=== PATIENT | female | born 1990 | race Caucasian/White ===

== ENCOUNTER 2017-09-19 16:57 | Emergency (ER) | payer MEDICARE, MEDICAID ==
[2017-09-19 17:09] VITALS: BP 119/84
--- NOTE | 2017-09-19 18:55 | UC ---
Jonn Rick Nilda, scribed for Pablo Kerr MD on 09/19/17 at 1737 . Abdominal Pain Female HPI - HPI Summary HPI Summary: This patient is a 27 year old F presenting to [facility] accompanied by family with a chief complaint of constant severe abd pain (RUQ wrapping to LUQ, occasionally radiating to chest) since 09/15/17. The patient rates the pain 8/10 in severity at its worse. Currently pain is rated as 6/10. Symptoms aggravated by PO intake and movement, and alleviated by nothing. Patient reports nausea, but denies vomiting, diarrhea, fever, dysuria, hematuria, and abnormal BM. PMHx GERD and ovarian cysts (ruptured). No PSHx. Pt denies having children. Pt states she is currently seeing GI doctor for issues with GERD. Pt notes she has not experienced previous similar episode. - History of Current Complaint Chief Complaint: UCAbdominalPain Stated Complaint: ABDOMINAL PAIN Hx Obtained From: Patient Hx Last Menstrual Period: 09/15/17 Onset/Duration: Sudden Onset, Lasting Days, Still Present Timing: Constant Severity Initially: Severe Severity Currently: Moderate Pain Intensity: 8 Pain Scale Used: 0-10 Numeric Location: Discrete At: RUQ, Discrete At: LUQ Radiates: Yes Radiates to: Chest Aggravating Factor(s): Food, Movement Alleviating Factor(s): Nothing Associated Signs and Symptoms: Positive: Other: - nausea, but denies vomiting, diarrhea, fever, dysuria, hematuria, and abnormal BM Allergies/Adverse Reactions: Allergies Allergy/AdvReac Type Severity Reaction Status Date / Time nickel Allergy Rash Verified 09/19/17 18:06 shellfish derived Allergy Anaphylatic Verified 09/19/17 18:06 Shock seasonal Allergy Eyes Uncoded 09/19/17 18:06 Itchy/Swollen/Red/Watery PMH/Surg Hx/FS Hx/Imm Hx GI/ History: Gastroesophageal Reflux, Other Other GI/ History: ovarian cyst (ruptured) Psychological History: Anxiety - Surgical History Surgical History: Yes Surgery Procedure, Year, and Place: tubes placed in ears as a child - Family History Known Family History: Negative: Hypertension, Diabetes - Social History Alcohol Use: None Substance Use Type: None Smoking Status (MU): Never Smoked Tobacco Review of Systems Constitutional: Other - negative fever Gastrointestinal: Abdominal Pain - RUQ wrapping to LUQ, occasionally radiating to chest, Nausea, Other - negative vomiting, diarrhea and abnormal BM Genitourinary: Other - negative dysuria, hematuria All Other Systems Reviewed And Are Negative: Yes Physical Exam - Summary Physical Exam Summary: General: well-appearing, no acute distress Skin: warm, color reflects adequate perfusion, dry Head: normal Eyes: EOMI, CHRISTIANO ENT: normal Neck: supple, nontender Respiratory: CTA, breath sounds present Cardiovascular: RRR Abdomen: soft, tender RUQ and epigastrium Bowel sounds: hypoactive Musculoskeletal: normal, strength/ROM intact Neurological: normal, sensory/motor intact, A&O x3 Psychological: affect/mood appropriate Triage Information Reviewed: Yes Vital Signs: Initial Vital Signs Temp 96.9 F 09/19/17 17:05 Pulse 73 09/19/17 17:05 Resp 12 09/19/17 17:05 BP 119/84 09/19/17 17:05 Pulse Ox 100 09/19/17 17:05 Vital Signs Reviewed: Yes Abd Pain Female Course/Dx - Course Course Of Treatment: BP noted and advised to follow up with PCP. Allergies noted. Medications reviewed. TENDERNESS PRIMARILY RUQ/EPIGASTRIUM. BECAUSE WE DO NOT HAVE LAB WORK THAT RESULTS TONIGHT OR US, I RECOMMENDED EVALUATION IN THE ED. PATIENT WISHES TO GO BY POV. - Differential Dx/Diagnosis Provider Diagnoses: UPPER ABDOMINAL PAIN. Elevated BP without Dx of HTN. Discharge - Discharge Plan Condition: Stable Disposition: HOME Patient Education Materials: Acute Abdominal Pain (ED) Referrals: Makenzie Rodriguez MD [Primary Care Provider] - Additional Instructions: GO DIRECTLY TO THE EMERGENCY DEPARTMENT FOR FURTHER EVALUATION OF YOUR ABDOMINAL PAIN. YOUR BLOOD PRESSURE WAS ELEVATED TODAY; FOLLOW UP WITH YOUR PRIMARY CARE DOCTOR WITHIN ONE WEEK. The documentation as recorded by the Jonn dee Nilda accurately reflects the service I personally performed and the decisions made by me, Pablo Kerr MD.
== END 2017-09-19 17:40 | disposition home or self-care (01) ==
LOC: UCEAST 16:57
DX: R10.10 Upper abdominal pain, unspecified (principal); R03.0 Elevated blood-pressure reading, without diagnosis of hypertension; R11.0 Nausea; K21.9 Gastro-esophageal reflux disease without esophagitis; F41.9 Anxiety disorder, unspecified
CPT/HCPCS: 99212; G0463

== ENCOUNTER 2017-09-19 18:03 | Emergency (ER) | payer MEDICARE, MEDICAID ==
[2017-09-19] MEDS ORDERED: Ondansetron INJ* 2 MG/ML VIAL IV ONE (19:17)
[2017-09-19] MEDS ORDERED: NS 0.9% 1000 ML* 1,000 ML IV ONE (19:17)
[2017-09-19] MEDS ORDERED: Ketorolac INJ* 30 MG/ML 1 ML VIAL IV PUSH ONE (19:23)
[2017-09-19 19:47] LABS: ABS Basophils 0.1 10^3/ul (0-0.2); ABS Eosinophils 0.2 10^3/ul (0-0.6); ABS Monocytes 0.6 10^3/ul (0-0.8); ABS Neutrophils 8.2 10^3/ul (1.5-7.7); ABS Nucleated RBC 0 10^3/ul; Eosinophil % 1.3 % (0-6); Hematocrit 41 % (35-47); Hemoglobin 13.4 g/dl (12.0-16.0); Mean Corpuscular HGB Conc 33 g/dl (31-36); Mean Corpuscular Hemoglobin 30 pg (27-31); Mean Corpuscular Volume 90 fL (80-97); Mean Platelet Volume 8 um3 (7.4-10.4); Nucleated Red Blood Cells % 0; Platelet Count 289 10^3/ul (150-450); Red Blood Count 4.54 10^6/ul (4.0-5.4); Red Cell Distribution Width 13 % (10.5-15)
[2017-09-19 19:53] LABS: INR 0.93 (0.77-1.02)
[2017-09-19 19:54] LABS: Urine Appearance Cloudy; Urine Blood Negative (Negative); Urine Color Yellow; Urine Ketones Negative (Negative); Urine Protein Negative (Negative); Urine Specific Gravity 1.014 (1.010-1.030); Urine Urobilinogen Negative (Negative)
[2017-09-19 20:02] LABS: EGFR Non-African American 60.9 (>60)
--- NOTE | 2017-09-19 20:40 | RAD ---
Conclusion: Right upper quadrant pain. Real-time sonography of the right upper quadrant was performed. The liver measures 15.9 cm in length. It is diffusely increased in echogenicity consistent with hepatic steatosis. The gallbladder demonstrates no gallstones, pericholecystic fluid or wall thickening. The common duct measures up to 5.1 mm. The right kidney measures 10.2 x 3.3 x 4.2 cm with no hydronephrosis. The pancreas head, neck and proximal body demonstrates no mass or pancreatic ductal dilatation. Aorta and inferior vena cava are unremarkable. IMPRESSION: Echogenic liver consistent with hepatic steatosis. No evidence of cholelithiasis or biliary ductal dilatation is present.
--- NOTE | 2017-09-19 21:31 | ED ---
Gino Rick Gabriel, scribed for Reynaldo Powell MD on 09/19/17 at 1949 . Abdominal Pain/Female - HPI Summary HPI Summary: This patient is a 27 year old F presenting to [facility] accompanied by her mother with a chief complaint of diffuse ABD pain since 09-15-17. The patient rates the pain 6/10 in severity. Symptoms aggravated by PO intake. Patient reports nausea. Patient denies fever. Last BM was today and LNMP began on 09-15-17 and ended 09-17-17. - History of Current Complaint Chief Complaint: EDAbdPain Stated Complaint: ABD PAIN Time Seen by Provider: 09/19/17 19:04 Hx Obtained From: Patient Hx Last Menstrual Period: 09/15/17 Onset/Duration: Still Present Timing: Constant Severity Initially: Moderate Severity Currently: Moderate Pain Intensity: 6 Pain Scale Used: 0-10 Numeric Location: Diffuse Radiates: No Aggravating Factor(s): Food Associated Signs and Symptoms: Positive: Nausea. Negative: Fever Allergies/Adverse Reactions: Allergies Allergy/AdvReac Type Severity Reaction Status Date / Time nickel Allergy Rash Verified 09/19/17 18:06 shellfish derived Allergy Anaphylatic Verified 09/19/17 18:06 Shock seasonal Allergy Eyes Uncoded 09/19/17 18:06 Itchy/Swollen/Red/Watery PMH/Surg Hx/FS Hx/Imm Hx Endocrine/Hematology History: Denies: Hx Diabetes Cardiovascular History: Denies: Hx Hypertension, Hx Pacemaker/ICD GI History: Reports: Hx Gastroesophageal Reflux Disease History: Denies: Hx Renal Disease Musculoskeletal History: Reports: Other Musculoskeletal History - recent diagnosis TMJ Sensory History: Reports: Hx Contacts or Glasses Denies: Hx Hearing Aid Opthamlomology History: Reports: Hx Contacts or Glasses Neurological History: Reports: Other Neuro Impairments/Disorders - occassionally a headache Psychiatric History: Reports: Hx Anxiety - mental disability Denies: Hx Panic Disorder - Surgical History Surgery Procedure, Year, and Place: tubes placed in ears as a child Hx Anesthesia Reactions: No Infectious Disease History: No Infectious Disease History: Denies: Traveled Outside the [place] in Last 30 Days - Family History Known Family History: Positive: None - Social History Occupation: Unemployed Lives: [facility] - for learning disability Alcohol Use: None Substance Use Type: Reports: None Smoking Status (MU): Never Smoked Tobacco Review of Systems Negative: Fever Positive: Abdominal Pain, Nausea All Other Systems Reviewed And Are Negative: Yes Physical Exam - Summary Physical Exam Summary: VITAL SIGNS: Reviewed. GENERAL: Patient is a well-developed and nourished FEMALE who is lying comfortable in the stretcher. Patient is not in any acute respiratory distress. HEAD AND FACE: No signs of trauma. No ecchymosis, hematomas or skull depressions. No sinus tenderness. EYES: PERRLA, EOMI x 2, No injected conjunctiva, no nystagmus. EARS: Hearing grossly intact. Ear canals and tympanic membranes are within normal limits. MOUTH: Oropharynx within normal limits. NECK: Supple, trachea is midline, no adenopathy, no JVD, no carotid bruit, no c- spine tenderness, neck with full ROM. CHEST: Symmetric, no tenderness at palpation LUNGS: Clear to auscultation bilaterally. No wheezing or crackles. CVS: Regular rate and rhythm, S1 and S2 present, no murmurs or gallops appreciated. ABDOMEN: Soft,. No signs of distention. No rebound no guarding, and no masses palpated. Bowel sounds are normal. TTP at RUQ EXTREMITIES: FROM in all major joints, no edema, no cyanosis or clubbing. NEURO: Alert and oriented x 3. No acute neurological deficits. Speech is normal and follows commands. SKIN: Dry and warm Triage Information Reviewed: Yes Vital Signs On Initial Exam: Initial Vitals Temp Pulse Resp BP Pulse Ox 96.9 F 56 16 114/70 100 09/19/17 18:06 09/19/17 18:06 09/19/17 18:06 09/19/17 18:06 09/19/17 18:06 Vital Signs Reviewed: Yes Diagnostics - Vital Signs Vital Signs Temp Pulse Resp BP Pulse Ox 09/19/17 18:06 96.9 F 56 16 114/70 100 - Laboratory Lab Results: Lab Results 09/19/17 Range/Units 19:35 WBC 12.0 H (3.5-10.8) 10^3/ul RBC 4.54 (4.0-5.4) 10^6/ul Hgb 13.4 (12.0-16.0) g/dl Hct 41 (35-47) % MCV 90 (80-97) fL MCH 30 (27-31) pg MCHC 33 (31-36) g/dl RDW 13 (10.5-15) % Plt Count 289 (150-450) 10^3/ul MPV 8 (7.4-10.4) um3 Neut % (Auto) 68.3 (38-83) % Lymph % (Auto) 25.0 (25-47) % [place] % (Auto) 4.9 (0-7) % Eos % (Auto) 1.3 (0-6) % Baso % (Auto) 0.5 (0-2) % Absolute Neuts (auto) 8.2 H (1.5-7.7) 10^3/ul Absolute Lymphs (auto) 3.0 (1.0-4.8) 10^3/ul Absolute Monos (auto) 0.6 (0-0.8) 10^3/ul Absolute Eos (auto) 0.2 (0-0.6) 10^3/ul Absolute Basos (auto) 0.1 (0-0.2) 10^3/ul Absolute Nucleated RBC 0 10^3/ul Nucleated RBC % 0 Result Diagrams: 09/19/17 19:35 09/19/17 19:35 Lab Statement: Any lab studies that have been ordered have been reviewed, and results considered in the medical decision making process. - Additional Comments Diagnostic Additional Comments: Gall bladder US reveals, per radiologist, Echogenic liver consistent with hepatic steatosis. No evidence of cholelithiasis or biliary ductal dilatation is present. ED physician has reviewed this radiology report. Abdominal Pain Fem Course/Dx - Course Course Of Treatment: This patient is a 27 year old F presenting to [facility] accompanied by her mother with a chief complaint of diffuse ABD pain since . The patient rates the pain 6/10 in severity. Symptoms aggravated by PO intake. Patient reports nausea. Patient denies fever. Last BM was today and LNMP began on 09-15-17 and ended 09-17-17. Gall bladder US reveals, per radiologist, Echogenic liver consistent with hepatic steatosis. No evidence of cholelithiasis or biliary ductal dilatation is present. Test results with no significant abnormalities. Blood work and UA obtained. In the ED course the patient was given toradol, Zofran, and IV fluids. Patient will be discharged and follow up from Dr. rodriguez. The patient is agreeable with this plan. - Diagnoses Provider Diagnoses: Abdominal pain Discharge - Discharge Plan Condition: Stable Disposition: HOME Patient Education Materials: Acute Abdominal Pain (ED) Referrals: Makenzie Rodriguez MD [Primary Care Provider] - 3 Days Additional Instructions: RETURN TO EMERGENCY DEPARTMENT FOR ANY NEW OR WORSENING SYMPTOMS The documentation as recorded by the Gino dee Gabriel accurately reflects the service I personally performed and the decisions made by Andre kern Abdul, MD.
[2017-09-19 21:34] VITALS: BP 106/72
== END 2017-09-19 21:34 | disposition home or self-care (01) ==
LOC: ED 18:03
DX: R10.9 Unspecified abdominal pain (principal); R11.0 Nausea; Z87.19 Personal history of other diseases of the digestive system
CPT/HCPCS: 36415; 76705; 80053; 81003; 82150; 83690; 83735; 84702; 85025; 85610; 86140; 96374; 96375; 99283; J1885; J2405

== ENCOUNTER 2017-11-26 08:43 | Emergency (ER) | payer MEDICARE, MEDICAID ==
--- OUTSIDE RECORDS SUMMARY | 2017-11-26 08:51 | XMS REPORT ---
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 Chloride 112 mmol/L High 101-111 9 Co2 Carbon Dioxide 23 mmol/L 22-32 9 Anion Gap 6 mmol/L 2-11 9 Glucose 96 mg/dL 70-100 9 Blood Urea Nitrogen 10 mg/dL 6-24 9 Creatinine 0.90 mg/dL 0.51-0.95 9 BUN/Creatinine Ratio 11.1 8-20 9 Calcium 9.4 mg/dL 8.6-10.3 9 Total Protein 6.7 g/dL 6.4-8.9 9 Albumin 4.2 g/dL 3.2-5.2 9 Globulin 2.5 g/dL 2-4 9 Albumin/Globulin Ratio 1.7 1-3 9 Total Bilirubin 0.40 mg/dL 0.2-1.0 9 Alkaline Phosphatase 78 U/L 34-104 9 Alt 12 U/L 7-52 9 Ast 13 U/L 13-39 9 Egfr Non- 75.7 >60 9 Egfr 97.3 >60 9, 13 Lipid Profile (Trig/Chol/HDL) 01/29/2017 Triglycerides 34 mg/dL 9, 14 Cholesterol 145 mg/dL 9, 15 HDL Cholesterol 39.7 mg/dL 9, 16 LDL Cholesterol 99 mg/dL 9, 17 Laboratory test finding 10/15/2016 Bricelyn 0.40 mmol/L Low 0.6-1.2 18 CBC Auto Diff 10/15/2016 White Blood Count 7.4 10^3/uL 3.5-10.8 Red Blood Count 4.34 10^6/uL 4.0-5.4 Hemoglobin 12.9 g/dL 12.0-16.0 Hematocrit 40 % 35-47 Mean Corpuscular Volume 92 fL 80-97 Mean Corpuscular Hemoglobin 30 pg 27-31 Mean Corpuscular HGB Conc 32 g/dL 31-36 Red Cell Distribution Width 14 % 10.5-15 Platelet Count 287 10^3/uL 150-450 Mean Platelet Volume 9 um3 7.4-10.4 Abs Neutrophils 4.8 10^3/uL 1.5-7.7 Abs Lymphocytes 2.0 10^3/uL 1.0-4.8 Abs Monocytes 0.4 10^3/uL 0-0.8 Abs Eosinophils 0.1 10^3/uL 0-0.6 Abs Basophils 0 10^3/uL 0-0.2 Abs Nucleated RBC 0 10^3/uL Granulocyte % 65.0 % 38-83 Lymphocyte % 27.3 % 25-47 Monocyte % 5.2 % 1-9 Eosinophil % 1.9 % 0-6 Basophil % 0.6 % 0-2 Nucleated Red Blood Cells % 0 Comp Metabolic Panel 10/15/2016 Sodium 139 mmol/L 133-145 Potassium 4.2 mmol/L 3.5-5.0 Chloride 105 mmol/L 101-111 Co2 Carbon Dioxide 29 mmol/L 22-32 Anion Gap 5 mmol/L 2-11 Glucose 87 mg/dL 70-100 Blood Urea Nitrogen 10 mg/dL 6-24 Creatinine 0.89 mg/dL 0.51-0.95 BUN/Creatinine Ratio 11.2 8-20 Calcium 9.8 mg/dL 8.6-10.3 Total Protein 7.0 g/dL 6.4-8.9 Albumin 4.3 g/dL 3.2-5.2 Globulin 2.7 g/dL 2-4 Albumin/Globulin Ratio 1.6 1-3 Total Bilirubin 0.30 mg/dL 0.2-1.0 Alkaline Phosphatase 80 U/L 34-104 Alt 15 U/L 7-52 Ast 13 U/L 13-39 Egfr Non- 76.7 >60 Egfr 98.6 >60 19 Laboratory test finding 10/15/2016 TSH (Thyroid Stim 1.29 mcIU/mL 0.34- 5.60 20 Horm) Vitamin D Total 25(Oh) 32.1 ng/mL 30-50 21 Stool Panel ([facility] [place]) 09/07/2016 Stool For Blood SEE RESULT BELOW 22 Urine DIP 09/07/2016 Leukocytes TRACE Neg Urine Nitrites NEG Neg Urobilinogen NORM Norm Total Protein, Urine NEG Neg Urine pH 8 High 5-6 Urine Blood TRACE Neg Specific [place] 1.005 Low 1.01-1.02 Urine Ketones NEG Neg Urine Bilirubin NEG Neg Urine Glucose NORM Norm Comp Metabolic Panel 08/30/2016 Sodium 139 mmol/L 133-145 Potassium 3.9 mmol/L 3.5-5.0 Chloride 104 mmol/L 101-111 Co2 Carbon Dioxide 29 mmol/L 22-32 Anion Gap 6 mmol/L 2-11 Glucose 87 mg/dL 70-100 Blood Urea Nitrogen 10 mg/dL 6-24 Creatinine 0.80 mg/dL 0.51-0.95 BUN/Creatinine Ratio 12.5 8-20 Calcium 9.7 mg/dL 8.6-10.3 Total Protein 7.2 g/dL 6.4-8.9 Albumin 4.3 g/dL 3.2-5.2 Globulin 2.9 g/dL 2-4 Albumin/Globulin Ratio 1.5 1-3 Total Bilirubin 0.40 mg/dL 0.2-1.0 Alkaline Phosphatase 77 U/L 34-104 Alt 21 U/L 7-52 Ast 15 U/L 13-39 Egfr Non- 86.7 >60 Egfr 111.5 >60 23 CBC Auto Diff 08/30/2016 White Blood Count 11.3 10^3/uL High 3.5-10.8 Red Blood Count 4.33 10^6/uL 4.0-5.4 Hemoglobin 12.8 g/dL 12.0-16.0 Hematocrit 39 % 35-47 Mean Corpuscular Volume 91 fL 80-97 Mean Corpuscular Hemoglobin 30 pg 27-31 Mean Corpuscular HGB Conc 33 g/dL 31-36 Red Cell Distribution Width 13 % 10.5-15 Platelet Count 323 10^3/uL 150-450 Mean Platelet Volume 9 um3 7.4-10.4 Abs Neutrophils 7.6 10^3/uL 1.5-7.7 Abs Lymphocytes 2.9 10^3/uL 1.0-4.8 Abs Monocytes 0.5 10^3/uL 0-0.8 Abs Eosinophils 0.2 10^3/uL 0-0.6 Abs Basophils 0 10^3/uL 0-0.2 Abs Nucleated RBC 0.01 10^3/uL Granulocyte % 67.6 % 38-83 Lymphocyte % 25.8 % 25-47 Monocyte % 4.8 % 1-9 Eosinophil % 1.4 % 0-6 Basophil % 0.4 % 0-2 Nucleated Red Blood Cells % 0.1 Laboratory test finding 08/30/2016 Amylase 63 U/L 29-103 24 Laboratory test finding 08/30/2016 Lipase 24 U/L 11.0-82.0 25 Lipid Profile (Trig/Chol/HDL) 08/02/2016 Triglycerides 96 mg/dL 26 Cholesterol 168 mg/dL 27 HDL Cholesterol 52.4 mg/dL 28 LDL Cholesterol 96 mg/dL 29 Laboratory test finding 08/02/2016 Bricelyn 0.45 mmol/L Low 0.6-1.2 TSH (Thyroid Stim Horm) 2.58 mcIU/mL 0.34-5.60 Free T4 0.76 ng/dL 0.61-1.12 CBC Auto Diff 08/02/2016 White Blood Count 9.3 10^3/uL 3.5-10.8 Red Blood Count 4.04 10^6/uL 4.0-5.4 Hemoglobin 12.2 g/dL 12.0-16.0 Hematocrit 37 % 35-47 Mean Corpuscular Volume 92 fL 80-97 Mean Corpuscular Hemoglobin 30 pg 27-31 Mean Corpuscular HGB Conc 33 g/dL 31-36 Red Cell Distribution Width 13 % 10.5-15 Platelet Count 270 10^3/uL 150-450 Mean Platelet Volume 9 um3 7.4-10.4 Abs Neutrophils 6.6 10^3/uL 1.5-7.7 Abs Lymphocytes 2.0 10^3/uL 1.0-4.8 Abs Monocytes 0.4 10^3/uL 0-0.8 Abs Eosinophils 0.2 10^3/uL 0-0.6 Abs Basophils 0 10^3/uL 0-0.2 Abs Nucleated RBC 0 10^3/uL Granulocyte % 71.2 % 38-83 Lymphocyte % 21.9 % Low 25-47 Monocyte % 4.3 % 1-9 Eosinophil % 2.1 % 0-6 Basophil % 0.5 % 0-2 Nucleated Red Blood Cells % 0 Comp Metabolic Panel 08/02/2016 Sodium 140 mmol/L 133-145 Potassium 4.1 mmol/L 3.5-5.0 Chloride 107 mmol/L 101-111 Co2 Carbon Dioxide 29 mmol/L 22-32 Anion Gap 4 mmol/L 2-11 Glucose 87 mg/dL 70-100 Blood Urea Nitrogen 15 mg/dL 6-24 Creatinine 0.84 mg/dL 0.51-0.95 BUN/Creatinine Ratio 17.9 8-20 Calcium 9.2 mg/dL 8.6-10.3 Total Protein 6.1 g/dL Low 6.4-8.9 Albumin 3.8 g/dL 3.2-5.2 Globulin 2.3 g/dL 2-4 Albumin/Globulin Ratio 1.7 1-3 Total Bilirubin 0.40 mg/dL 0.2-1.0 Alkaline Phosphatase 72 U/L 34-104 Alt 11 U/L 7-52 Ast 11 U/L Low 13-39 Egfr Non- 82.6 >60 Egfr 106.2 >60 30 HIV 1/2 AB Evaluation 07/02/2016 HIV 1 2 Antibody Nonreactive Nonreactive 31 Laboratory test 04/23/2016 HCG < 0.60 mIU/mL 32 finding Laboratory test 11/04/2015 Clotest SEE RESULT BELOW 33 finding Surgical Interface Order SEE RESULT BELOW 34 Laboratory test finding 09/25/2015 [place] Pylori Antigen- Negative Negative 35 Stool CBC Auto Diff 09/25/2015 White Blood Count 8.8 10^3/uL 3.5-10.8 Red Blood Count 4.29 10^6/uL 4.0-5.4 Hemoglobin 12.9 g/dL 12.0-16.0 Hematocrit 39 % 35-47 Mean Corpuscular Volume 92 fL 80-97 Mean Corpuscular Hemoglobin 30 pg 27-31 Mean Corpuscular HGB Conc 33 g/dL 31-36 Red Cell Distribution Width 13 % 10.5-15 Platelet Count 280 10^3/uL 150-450 Mean Platelet Volume 9 um3 7.4-10.4 Abs Neutrophils 6.3 10^3/uL 1.5-7.7 Abs Lymphocytes 1.8 10^3/uL 1.0-4.8 Abs Monocytes 0.4 10^3/uL 0-0.8 Abs Eosinophils 0.2 10^3/uL 0-0.6 Abs Basophils 0.1 10^3/uL 0-0.2 Abs Nucleated RBC 0 10^3/uL Granulocyte % 71.6 % 38-83 Lymphocyte % 20.2 % Low 25-47 Monocyte % 4.4 % 1-9 Eosinophil % 2.7 % 0-6 Basophil % 1.1 % 0-2 Nucleated Red Blood Cells % 0 Comp Metabolic Panel 09/25/2015 Sodium 139 mmol/L 133-145 Potassium 3.8 mmol/L 3.5-5.0 Chloride 104 mmol/L 101-111 Co2 Carbon Dioxide 29 mmol/L 22-32 Anion Gap 6 mmol/L 2-11 Glucose 90 mg/dL 70-100 Blood Urea Nitrogen 12 mg/dL 6-24 Creatinine 0.82 mg/dL 0.51-0.95 BUN/Creatinine Ratio 14.6 8-20 Calcium 9.4 mg/dL 8.6-10.3 Total Protein 6.6 g/dL 6.4-8.9 Albumin 4.1 g/dL 3.2-5.2 Globulin 2.5 g/dL 2-4 Albumin/Globulin Ratio 1.6 1-3 Total Bilirubin 0.20 mg/dL 0.2-1.0 Alkaline Phosphatase 78 U/L 34-104 Alt 29 U/L 7-52 Ast 17 U/L 13-39 Egfr Non- 84.9 >60 Egfr 109.2 >60 36 Urine DIP 07/09/2015 Leukocytes 70+ High Neg Urine Nitrites NEG Neg Urobilinogen NEG Norm Total Protein, Urine 15+ High Neg Urine pH 6.5 High 5-6 Urine Blood NEG Neg Specific [place] 1.020 1.01-1.02 Urine Ketones NEG Neg Urine Bilirubin NEG Neg Urine Glucose NORM Norm Laboratory test 07/09/2015 Genital Culture SEE RESULT BELOW 37 finding GC/Chlamydia 07/09/2015 Chlamydia trachomatis Negative Negative Amplified Rna Rna Neisseria gonorrhoeae (GC) Rna Negative Negative Laboratory test finding 07/09/2015 Bacterial Vaginosis Smear SEE RESULT BELOW 38 Trichomonas vaginalis Rna Negative Negative 39 CBC No Diff 04/24/2015 White Blood Count 7.2 10^3/uL 4.8-10.8 Red Blood Count 4.71 10^6/uL 4.0-5.4 Hemoglobin 14.2 g/dL 12.0-16.0 Hematocrit 43 % 35-47 Mean Corpuscular Volume 92 fL 80-97 Mean Corpuscular Hemoglobin 30 pg 27-31 Mean Corpuscular HGB Conc 33 g/dL 31-36 Red Cell Distribution Width 13 % 10.5-15 Platelet Count 269 10^3/uL 150-450 Mean Platelet Volume 8 um3 7.4-10.4 Comp Metabolic Panel 04/24/2015 Sodium 137 mmol/L 133-145 Potassium 3.7 mmol/L 3.5-5.0 Chloride 103 mmol/L 101-111 Co2 Carbon Dioxide 28 mmol/L 22-32 Anion Gap 6 mmol/L 2-11 Glucose 76 mg/dL 70-100 Blood Urea Nitrogen 15 mg/dL 6-24 Creatinine 0.90 mg/dL 0.51-0.95 BUN/Creatinine Ratio 16.7 8-20 Calcium 9.9 mg/dL 8.6-10.3 Total Protein 7.2 g/dL 6.4-8.9 Albumin 4.5 g/dL 3.2-5.2 Globulin 2.7 g/dL 2-4 Albumin/Globulin Ratio 1.7 1-3 Total Bilirubin 0.40 mg/dL 0.2-1.0 Alkaline Phosphatase 72 U/L 34-104 Alt 14 U/L 7-52 Ast 17 U/L 13-39 Egfr Non- 76.9 >60 Egfr 98.9 >60 40 Laboratory test finding 04/24/2015 Bricelyn 0.31 mmol/L Low 0.6-1.2 TSH (Thyroid Stimulating Horm) 1.86 ?IU/mL 0.34-5.60 Free T4 0.83 ng/mL 0.61-1.12 Total T3 1.90 ng/mL High 0.87-1.78 Laboratory test finding 03/31/2015 Cytology SEE RESULT BELOW 41 Comp Metabolic Panel 02/27/2015 Sodium 138 mmol/L 133-145 Potassium 4.4 mmol/L 3.5-5.0 Chloride 105 mmol/L 101-111 Co2 Carbon Dioxide 28 mmol/L 22-32 Anion Gap 5 mmol/L 2-11 Glucose 87 mg/dL 70-100 Blood Urea Nitrogen 15 mg/dL 6-24 Creatinine 0.80 mg/dL 0.51-0.95 BUN/Creatinine Ratio 18.8 8-20 Calcium 9.4 mg/dL 8.6-10.3 Total Protein 6.7 g/dL 6.4-8.9 Albumin 4.3 g/dL 3.2-5.2 Globulin 2.4 g/dL 2-4 Albumin/Globulin Ratio 1.8 1-3 Total Bilirubin 0.50 mg/dL 0.2-1.0 Alkaline Phosphatase 72 U/L 34-104 Alt 21 U/L 7-52 Ast 17 U/L 13-39 Egfr Non- 88.1 >60 Egfr 113.3 >60 42 Laboratory test finding 02/27/2015 Bricelyn 0.48 mmol/L Low 0.6-1.2 TSH (Thyroid Stimulating Horm) 2.94 ?IU/mL 0.34-5.60 CBC No Diff 01/23/2015 White Blood Count 7.6 10^3/uL 4.8-10.8 Red Blood Count 4.35 10^6/uL 4.0-5.4 Hemoglobin 13.5 g/dL 12.0-16.0 Hematocrit 41 % 35-47 Mean Corpuscular Volume 94 fL 80-97 Mean Corpuscular Hemoglobin 31 pg 27-31 Mean Corpuscular HGB Conc 33 g/dL 31-36 Red Cell Distribution Width 13 % 10.5-15 Platelet Count 243 10^3/uL 150-450 Mean Platelet Volume 8 um3 7.4-10.4 Laboratory test finding 01/23/2015 TSH (Thyroid Stimulating 1.51 ?IU/mL 0.34-5.60 Horm) Comp Metabolic Panel 01/23/2015 Sodium 138 mmol/L 133-145 Potassium 3.9 mmol/L 3.5-5.0 Chloride 105 mmol/L 101-111 Co2 Carbon Dioxide 26 mmol/L 22-32 Anion Gap 7 mmol/L 2-11 Glucose 80 mg/dL 70-100 Blood Urea Nitrogen 12 mg/dL 6-24 Creatinine 0.77 mg/dL 0.51-0.95 BUN/Creatinine Ratio 15.6 8-20 Calcium 8.9 mg/dL 8.6-10.3 Total Protein 6.3 g/dL Low 6.4-8.9 Albumin 4.0 g/dL 3.2-5.2 Globulin 2.3 g/dL 2-4 Albumin/Globulin Ratio 1.7 1-3 Total Bilirubin 0.60 mg/dL 0.2-1.0 Alkaline Phosphatase 62 U/L 34-104 Ast 18 U/L 13-39 Egfr Non- 92.1 >60 Egfr 118.4 >60 43 Alt 21 U/L 7-52 Lipid Profile (Trig/Chol/HDL) 01/23/2015 Triglycerides 59 mg/dL 44 Cholesterol 145 mg/dL 45 HDL Cholesterol 59.4 mg/dL 46 LDL Cholesterol 74 mg/dL 47 Laboratory test finding 01/23/2015 Bricelyn 0.16 mmol/L Low 0.6-1.2 Urinalysis Profile 10/08/2014 Urine Color Straw Urine Appearance Clear Urine Specific [place] 1.019 1.010-1.030 Urine pH 7.0 5-9 Urine Urobilinogen Negative Negative Urine Ketones Negative Negative Urine Protein Negative Negative Urine Leukocytes Negative Negative Urine Blood Negative Negative Urine Nitrite Negative Negative Urine Bilirubin Negative Negative Urine Glucose Negative Negative Gardnerella/Yeast: 10/08/2014 Gardnerella/Yeast: (SEE NOTE) 48, 49 Vaginal Dna Vaginal Dna Laboratory test 10/08/2014 Trichomonas vaginalis Negative Negative 48, 50 finding Rna GC/Chlamydia Amplified 10/08/2014 Chlamydia trachomatis Negative Negative 48 Rna Rna Neisseria gonorrhoeae (GC) Rna Negative Negative 48, 51 CBC Auto Diff 10/07/2014 White Blood Count 9.9 10^3/uL 4.8-10.8 Red Blood Count 4.34 10^6/uL 4.0-5.4 Hemoglobin 13.6 g/dL 12.0-16.0 Hematocrit 41 % 35-47 Mean Corpuscular Volume 94 fL 80-97 Mean Corpuscular Hemoglobin 31 pg 27-31 Mean Corpuscular HGB Conc 33 g/dL 31-36 Red Cell Distribution Width 13 % 10.5-15 Platelet Count 213 10^3/uL 150-450 Mean Platelet Volume 8 um3 7.4-10.4 Abs Neutrophils 7.2 10^3/uL 1.5-7.7 Abs Lymphocytes 2.0 10^3/uL 1.0-4.8 Abs Monocytes 0.6 10^3/uL 0-0.8 Abs Eosinophils 0.1 10^3/uL 0-0.6 Abs Basophils 0 10^3/uL 0-0.2 Abs Nucleated RBC 0 10^3/uL Granulocyte % 72.5 % 38-83 Lymphocyte % 19.9 % Low 25-47 Monocyte % 5.8 % 1-9 Eosinophil % 1.3 % 0-6 Basophil % 0.5 % 0-2 Nucleated Red Blood Cells % 0 Comp Metabolic Panel 10/07/2014 Sodium 138 mmol/L 133-145 Potassium 3.6 mmol/L 3.5-5.0 Chloride 108 mmol/L 101-111 Co2 Carbon Dioxide 26 mmol/L 22-32 Anion Gap 4 mmol/L 2-11 Glucose 82 mg/dL 70-100 Blood Urea Nitrogen 19 mg/dL 6-24 Creatinine 0.91 mg/dL 0.51-0.95 BUN/Creatinine Ratio 20.9 High 8-20 Calcium 9.1 mg/dL 8.6-10.3 Total Protein 6.6 g/dL 6.4-8.9 Albumin 4.2 g/dL 3.2-5.2 Globulin 2.4 g/dL 2-4 Albumin/Globulin Ratio 1.8 1-3 Total Bilirubin 0.30 mg/dL 0.2-1.0 Alkaline Phosphatase 65 U/L 34-104 Alt 21 U/L 7-52 Ast 25 U/L 13-39 Egfr Non- 76.0 >60 Egfr 97.7 >60 52 Laboratory test finding 10/07/2014 C Reactive Protein 1.70 mg/L < 5.00 53 CBC Auto Diff 09/10/2014 White Blood Count 7.3 10^3/uL 4.8-10.8 Red Blood Count 4.54 10^6/uL 4.0-5.4 Hemoglobin 14.7 g/dL 12.0-16.0 Hematocrit 42 % 35-47 Mean Corpuscular Volume 93 fL 80-97 Mean Corpuscular Hemoglobin 32 pg High 27-31 Mean Corpuscular HGB Conc 35 g/dL 31-36 Red Cell Distribution Width 13 % 10.5-15 Platelet Count 233 10^3/uL 150-450 Mean Platelet Volume 9 um3 7.4-10.4 Abs Neutrophils 4.3 10^3/uL 1.5-7.7 Abs Lymphocytes 2.2 10^3/uL 1.0-4.8 Abs Monocytes 0.5 10^3/uL 0-0.8 Abs Eosinophils 0.2 10^3/uL 0-0.6 Abs Basophils 0.1 10^3/uL 0-0.2 Abs Nucleated RBC 0 10^3/uL Granulocyte % 58.7 % 38-83 Lymphocyte % 30.4 % 25-47 Monocyte % 6.8 % 1-9 Eosinophil % 3.4 % 0-6 Basophil % 0.7 % 0-2 Nucleated Red Blood Cells % 0 Comp Metabolic Panel 09/10/2014 Sodium 139 mmol/L 133-145 Potassium 3.4 mmol/L Low 3.5-5.0 Chloride 106 mmol/L 101-111 Co2 Carbon Dioxide 27 mmol/L 22-32 Anion Gap 6 mmol/L 2-11 Glucose 89 mg/dL 70-100 Blood Urea Nitrogen 15 mg/dL 6-24 Creatinine 0.81 mg/dL 0.51-0.95 BUN/Creatinine Ratio 18.5 8-20 Calcium 9.4 mg/dL 8.6-10.3 Total Protein 7.0 g/dL 6.4-8.9 Albumin 4.6 g/dL 3.2-5.2 Globulin 2.4 g/dL 2-4 Albumin/Globulin Ratio 1.9 1-3 Total Bilirubin 0.40 mg/dL 0.2-1.0 Alkaline Phosphatase 58 U/L 34-104 Alt 12 U/L 7-52 Ast 14 U/L 13-39 Egfr Non- 86.9 >60 Egfr 111.7 >60 54 Laboratory test finding 09/10/2014 Amylase 52 U/L 29-103 Lipase 23 U/L 11.0-82.0 H.Pylori Igm AB 09/10/2014 Helicobacter pylori IgM Ab Negative Negative H pylori IgM AB Index 15.40 55 H.Pylori Igg AB 09/10/2014 Helicobacter pylori IgG Ab Negative Negative H pylori IgG AB Index 3.36 56 H Pylori Iga 09/10/2014 Helicobacter pylori IgA Ab Negative Negative H pylori IgA Ab Index 1.15 57 Celiac Panel 09/10/2014 Immunoglobulin A 94 mg/dL 61 - 356 Tissue Transglutaminase IgA Ab <1.2 U/mL 58 Celiac Interpretation See Comment 59 Laboratory test finding 09/10/2014 Magnesium 1.9 mg/dL 1.9-2.7 Basic Metabolic Panel 06/18/2014 Sodium 140 mmol/L 133-145 Potassium 3.8 mmol/L 3.5-5.0 60 Chloride 106 mmol/L 101-111 Co2 Carbon Dioxide 27 mmol/L 22-32 Anion Gap 7 mmol/L 2-11 Glucose 59 mg/dL Low 70-100 Blood Urea Nitrogen 15 mg/dL 6-24 Creatinine 0.81 mg/dL 0.51-0.95 BUN/Creatinine Ratio 18.5 8-20 Calcium 9.3 mg/dL 8.6-10.3 Egfr Non- 87.6 >60 Egfr 112.7 >60 61 Lipid Profile (Trig/Chol/HDL) 06/18/2014 Triglycerides 37 mg/dL 62 Cholesterol 129 mg/dL 63 HDL Cholesterol 55.6 mg/dL 64 LDL Cholesterol 66 mg/dL 65 Laboratory test finding 04/02/2014 HCG DIP Test neg Neg Laboratory test finding 12/24/2013 HCG DIP Test neg Neg Urine DIP 12/24/2013 Specific [place] 1.005 Low 1.01-1.02 Urine pH 7 High 5-6 Leukocytes neg Neg Urine Nitrites neg Neg Total Protein, Urine neg Neg Urine Glucose norm Norm Urine Ketones neg Neg Urobilinogen norm Norm Urine Bilirubin neg Neg Urine Blood neg Neg Vad 09/01/2010 Vad Final NONREACTIVE Nonreactive 66 Laboratory test finding 09/01/2010 Hepatitis C Antibody Nonreactive Nonreactive Comp Metabolic Panel 07/20/2010 Sodium 140 mmol/L 135-145 Potassium 4.0 mmol/L 3.5-5.0 Chloride 106 mmol/L 101-111 Co2 (Carbon Dioxide) 27.0 mmol/L 22-32 Anion Gap 7.0 mmol/L 2-11 67 Glucose 93 mg/dL 70-100 BUN 8 mg/dL 6-24 Creatinine 0.80 mg/dL 0.50-1.40 One Over Creatinine 1.20 BUN/Creatinine Ratio 10.0 8-20 Calcium 9.5 mg/dL 8.1-9.9 Total Protein 6.5 GM/DL 6.2-8.1 Albumin 4.5 GM/DL 3.6-5.4 Globulin 2.0 GM/DL 2-4 Albumin/Globulin Ratio 2.3 1-3 Bilirubin Total 1.4 mg/dL 0.4-1.5 68 Alkaline Phosphatase 56 U/L 40-122 Alt (SGPT) 17 U/L 14-54 Ast (Sgot) 17 U/L 12-42 eGFR Non- 98.2 > 60 eGFR 118.8 > 60 69 CBC With Electronic Diff 07/20/2010 White Blood Count 5.0 CUMM 4.8-10.8 Red Cell Count 4.15 CUMM Low 4.2-5.4 Hemoglobin 13.7 g/dL 12.0-16.0 Hematocrit 39 % 35-47 Mean Corpuscular Volume 94 um3 79-97 Mean Corpuscular Hemoglob 33 pg High 27-31 Mean Corpuscular HGB Cone 35 g/dL 32-36 Redcell Distribution WDTH 12 % 10.5-15 Platelet Count 225 CUMM 150-450 Mean Platelet Volume 7.1 um3 Low 7.4-10.4 Gran % 63.7 % 38-83 Lymph % 29.8 % 25-47 Mononuclear % 5.6 % 1-9 Eosinophil % 0.5 % 0-6 Basophil % 0.4 % 0-2 Abs Lymphs 1.5 1.0-4.8 Abs Mononuclear 0.3 0-0.8 Absolute Neutrophil Count 3.2 1.5-7.7 Abs Eosinophils 0 0-0.6 Abs Basophils 0 0-0.2 1 Because ethnic data is not always readily available, this report includes an eGFR for both -Americans and non- Americans. The National Kidney Disease Education Program (NKDEP) does not endorse the use of the MDRD equation for patients that are not between the ages of 18 and 70, are , have extremes of body size, muscle mass, or nutritional status, or are non- or non-. According to the National Kidney Foundation, irrespective of diagnosis, the stage of the disease is based on the level of kidney function: Stage Description GFR(mL/min/1.73 m(2)) 1 Kidney damage with normal or decreased GFR 90 2 Kidney damage with mild decrease in GFR 60-89 3 Moderate decrease in GFR 30-59 4 Severe decrease in GFR 15-29 5 Kidney failure <15 (or dialysis) 2 Because ethnic data is not always readily available, this report includes an eGFR for both -Americans and non- Americans. The National Kidney Disease Education Program (NKDEP) does not endorse the use of the MDRD equation for patients that are not between the ages of 18 and 70, are , have extremes of body size, muscle mass, or nutritional status, or are non- or non-. According to the National Kidney Foundation, irrespective of diagnosis, the stage of the disease is based on the level of kidney function: Stage Description GFR(mL/min/1.73 m(2)) 1 Kidney damage with normal or decreased GFR 90 2 Kidney damage with mild decrease in GFR 60-89 3 Moderate decrease in GFR 30-59 4 Severe decrease in GFR 15-29 5 Kidney failure <15 (or dialysis) 3 Acute inflammation: >10.00 4 <5.0 Negative 5.0 - 25.0 Indeterminate (Repeat testing recommended after 72 hours) >25.0 Positive Perimenopausal women can display HCG levels of up to 20 mIU/mL 5 Because ethnic data is not always readily available, this report includes an eGFR for both -Americans and non- Americans. The National Kidney Disease Education Program (NKDEP) does not endorse the use of the MDRD equation for patients that are not between the ages of 18 and 70, are , have extremes of body size, muscle mass, or nutritional status, or are non- or non-. According to the National Kidney Foundation, irrespective of diagnosis, the stage of the disease is based on the level of kidney function: Stage Description GFR(mL/min/1.73 m(2)) 1 Kidney damage with normal or decreased GFR 90 2 Kidney damage with mild decrease in GFR 60-89 3 Moderate decrease in GFR 30-59 4 Severe decrease in GFR 15-29 5 Kidney failure <15 (or dialysis) 6 [id number] Because ethnic data is not always readily available, this report includes an eGFR for both -Americans and non- Americans. The National Kidney Disease Education Program (NKDEP) does not endorse the use of the MDRD equation for patients that are not between the ages of 18 and 70, are , have extremes of body size, muscle mass, or nutritional status, or are non- or non-. According to the National Kidney Foundation, irrespective of diagnosis, the stage of the disease is based on the level of kidney function: Stage Description GFR(mL/min/1.73 m(2)) 1 Kidney damage with normal or decreased GFR 90 2 Kidney damage with mild decrease in GFR 60-89 3 Moderate decrease in GFR 30-59 4 Severe decrease in GFR 15-29 5 Kidney failure <15 (or dialysis) 9 PLEASE FAX RESULTS TO: 10 PLEASE FAX RESULTS TO: 11 PLEASE FAX RESULTS TO: 12 PLEASE FAX RESULTS TO: 13 Because ethnic data is not always readily available, this report includes an eGFR for both -Americans and non- Americans. The National Kidney Disease Education Program (NKDEP) does not endorse the use of the MDRD equation for patients that are not between the ages of 18 and 70, are , have extremes of body size, muscle mass, or nutritional status, or are non- or non-. According to the National Kidney Foundation, irrespective of diagnosis, the stage of the disease is based on the level of kidney function: Stage Description GFR(mL/min/1.73 m(2)) 1 Kidney damage with normal or decreased GFR 90 2 Kidney damage with mild decrease in GFR 60-89 3 Moderate decrease in GFR 30-59 4 Severe decrease in GFR 15-29 5 Kidney failure <15 (or dialysis) 14 Desirable <150 Borderline high 150-199 High 200-499 Very High >500 15 Desirable <200 Borderline high 200-239 High >239 16 Low <40 Desirable: 40-60 High: >60 17 Desirable: <100 mg/dL Near Optimal: 100-129 mg/dL Borderline High: 130-159 mg/dL High: 160-189 mg/dL Very High: >189 mg/dL 18 CC to Lori [employer] [id number] 19 Because ethnic data is not always readily available, this report includes an eGFR for both -Americans and non- Americans. The National Kidney Disease Education Program (NKDEP) does not endorse the use of the MDRD equation for patients that are not between the ages of 18 and 70, are , have extremes of body size, muscle mass, or nutritional status, or are non- or non-. According to the National Kidney Foundation, irrespective of diagnosis, the stage of the disease is based on the level of kidney function: Stage Description GFR(mL/min/1.73 m(2)) 1 Kidney damage with normal or decreased GFR 90 2 Kidney damage with mild decrease in GFR 60-89 3 Moderate decrease in GFR 30-59 4 Severe decrease in GFR 15-29 5 Kidney failure <15 (or dialysis) 20 CC to [facility] [id number] CC to [facility] [id number] 22 SEE RESULT BELOW Name: BALAJI MAZARIEGOS : [address]: Lynette Espinosa NP Acct: [id number] Unit: [id number] AGE: 26 Location: [facility] Re09/07/16 SEX: F Status: REG REF SPEC: [id number] KACIE: 09/07/16-[address]: Lynette Espinosa NP REQ: [id number] RECD: 09/08/16 STATUS: COMP _ SOURCE: STOOL SPDESC: ORDERED: Hemoccult/R, C. diff PCR/S, Stool Culture/R, Fecal Lactoferr/R, O P : Emely Procedure Result Reported Site Stool Culture Final 09/10/16- 1300 ML Result No enteric pathogens isolated Testing for Salmonella, Shigella, Aeromonas, Plesiomonas, Yersinia and Campylobacter are included in a Stool Culture. Vibrio spp not routinely tested for in a stool culture. If testing is desired, please request specifically when placing test order. Sensitivities not routinely performed on stool isolates, as antibiotics may prolong the carriage rate of bacteria. Please contact the microbiology lab if sensitivities are required. Stool Specimen Description Final 09/08/16- 1828 ML Stool Color Brown Stool Form Nonformed Stool Consistency Soft Shiga Toxin 1 2 Final 09/09/16- 1056 ML Organism 1 Negative Shiga Toxin 1 2 Immunochromatographic Assay CONTINUED ON NEXT PAGE * ML=Testing performed at Main Lab DEPARTMENT OF PATHOLOGY, [address] [place] [address] Clarence Sahu M.D. Director [facility] # [id number] Patient: BALAJI MAZARIEGOS [id number] (Continued) Specimen: [id number] Collected: 09/07/16-1200 Received: 09/08/16-1627 (Continued) Procedure Result Reported Site Shiga Toxin 1 2 Final (continued) 09/09/16- 1056 C. difficile PCR Final 09/08/16- 335 ML Organism 1 027 Presumptive NEGATIVE Organism 2 Toxigenic C.diff NEGATIVE Fecal Lactoferrin (Stool WBC) Final 09/09/16- 0338 ML Fecal Lactoferrin Negative by Immunoassay TEST LIMITATIONS: Assay detects elevated levels of lactoferrin released from fecal leukocytes as a marker of intestinal inflammation. The test may not be appropriate in immunocompromised persons. Fecal samples from breast fed infants should not be used with this assay. Stool Occult Blood Final 09/08/16- 2015 ML Stool Occult Blood Negative O P: Giardia/Cryptospor Screen Final 09/10/16- 1157 ML Organism 1 Neg Cryptosporidium/Giardia Giardia and cryptosporidium antigen testing performed by enzyme immunoassay. If patient is immunocompromised or has traveled to or is from a developing country, a full ova and parasite exam with microscopic (OPMIC) is recommended. All samples will be held one month in case full ova and parasite testing is requested. Contact the Microbiology Department at [phone]. TEST LIMITATIONS: As with all diagnostic procedures, the results obtained should be used in conjunction with other clinical information available the physician, including confirmation by another method. Negative results can occur in samples containing antigen below lower limits of detection of the CONTINUED ON NEXT PAGE * ML=Testing performed at Main Lab DEPARTMENT OF PATHOLOGY, [address] [place] [address] Clarence Sahu M.D. Director [facility] # [id number] Patient: BALAJI MAZARIEGOS [id number] (Continued) Specimen: [id number] Collected: 09/07/16-1200 Received: 09/08/16-1627 (Continued) Procedure Result Reported Site O P: Giardia/Cryptospor Screen Final (continued) 09/10/16 115 assay. One negative specimen does not rule out the possibility of a parasitic infection. To improve detection it is recommended that three specimens be collected on separate days over a period of not more than seven days. The use of colonic washes, aspirates or other diluted sample types has not been established and could affect the performance of the assay. Stool samples contaminated with an oily or particulate base (eg. Barium, mineral oil etc.) could interfere with the test and are not recommended. * ML - MAIN LAB ([facility]) . END OF REPORT * ML=Testing performed at Main Lab DEPARTMENT OF PATHOLOGY, [address] [place] [address] Clarence Sahu M.D. Director [facility] # [id number] 23 Because ethnic data is not always readily available, this report includes an eGFR for both -Americans and non- Americans. The National Kidney Disease Education Program (NKDEP) does not endorse the use of the MDRD equation for patients that are not between the ages of 18 and 70, are , have extremes of body size, muscle mass, or nutritional status, or are non- or non-. According to the National Kidney Foundation, irrespective of diagnosis, the stage of the disease is based on the level of kidney function: Stage Description GFR(mL/min/1.73 m(2)) 1 Kidney damage with normal or decreased GFR 90 2 Kidney damage with mild decrease in GFR 60-89 3 Moderate decrease in GFR 30-59 4 Severe decrease in GFR 15-29 5 Kidney failure <15 (or dialysis) 24 [id number] 26 Desirable <150 Borderline high 150-199 High 200-499 Very High >500 27 Desirable <200 Borderline high 200-239 High >239 28 Low <40 Desirable: 40-60 High: >60 29 Desirable: <100 mg/dL Near Optimal: 100-129 mg/dL Borderline High: 130-159 mg/dL High: 160-189 mg/dL Very High: >189 mg/dL 30 Because ethnic data is not always readily available, this report includes an eGFR for both -Americans and non- Americans. The National Kidney Disease Education Program (NKDEP) does not endorse the use of the MDRD equation for patients that are not between the ages of 18 and 70, are , have extremes of body size, muscle mass, or nutritional status, or are non- or non-. According to the National Kidney Foundation, irrespective of diagnosis, the stage of the disease is based on the level of kidney function: Stage Description GFR(mL/min/1.73 m(2)) 1 Kidney damage with normal or decreased GFR 90 2 Kidney damage with mild decrease in GFR 60-89 3 Moderate decrease in GFR 30-59 4 Severe decrease in GFR 15-29 5 Kidney failure <15 (or dialysis) 31 It is recognized that currently available assays for the detection of antibodies to HIV-1 and/or HIV-2 may not detect all infected individuals. HIV antibodies may be undetectable in some stages of the infection and in some clinical conditions. The performance of this assay has not been established for populations of infants or children. Assayed by Chemiluminescence Microparticle Immunoassay on the Siemens Advia Centaur CP. Values obtained with different methods or kits cannot be used interchangeably.The diagnostic specificity of the ADVIA Centaur 1/O/2 Enhanced assay in the low risk population was 99.90% (6052/6058) with a 95% confidence interval of 99.78 to 99.96%. 32 <5.0 Negative 5.0 - 25.0 Indeterminate (Repeat testing recommended after 72 hours) >25.0 Positive Perimenopausal women can display HCG levels of up to 20 mIU/mL 33 SEE RESULT BELOW Name: DELILAHBALAJI : [address]: Jean Jacinto MD Acct: [id number] Unit: [id number] AGE: 25 Location: ENDO Re11/04/15 SEX: F Status: REG REF SPEC: [id number] KACIE: 11/04/15-[address] [facility] [address]: Jean Jacinto MD REQ: [id number] RECD: 11/04/15-1505 STATUS: [facility] DR: Makenzie Reeves MD _ SOURCE: GAS ANTRUM SPDESC: ORDERED: Clotest Procedure Result Reported Site Clotest Final 11/05/15634 ML Clotest Negative * ML - MAIN LAB ([facility]) . END OF REPORT * ML=Testing performed at Main Lab DEPARTMENT OF PATHOLOGY, [address] [place] [address] Clarence Sahu M.D. Director [facility] # [id number] 34 SEE RESULT BELOW Name: BALAJI MAZARIEGOS : [address]: Jean Jacinto MD Acct: [id number] Unit: [id number] AGE: 25 Location: ENDO Re11/04/15 SEX: F Status: REG REF SPEC: [id number] KACIE: 11/04/[address] [facility] [address]: Jean Jacinto MD REQ: [id number] RECD: 11/04/15 STATUS: PHONG RUSSELL DR: Makenzie Reeves MD _ ORDERED: LEVEL IV FINAL DIAGNOSIS Duodenum, third portion, biopsy: -- Benign small intestinal mucosa with no significant pathologic abnormalities. -- No evidence of villous blunting or increased intraepithelial lymphocytes. CLINICAL HISTORY Appetite poor to good - losing weight (a lot) POST-OPERATIVE DIAGNOSIS Larynx - narrow; esophagus - normal, EG 37 smooth; stomach minimal bile, normal, no erythema, CLOtest done; duodenum - normal. Conclusions/Plan: Normal EGD, nausea - not explained GROSS DESCRIPTION The specimen is received in formalin labeled, Third Portion Duodenum Biopsy, and consists of two zuniga-white irregular to polypoid soft tissue fragments averaging 0.4 x 0.3 x 0.2 cm, which are entirely submitted in one cassette. Signed (signature on file) Melany Bethea MD 1457 END OF REPORT * ML=Testing performed at Main Lab DEPARTMENT OF PATHOLOGY, [address] [place] [address] Clarence Sahu M.D. Director [facility] # [id number] 35 Test Performed by: [address] [address] Manager Math: Pablo Toscano II, M.D., Ph.D. 36 Because ethnic data is not always readily available, this report includes an eGFR for both -Americans and non- Americans. The National Kidney Disease Education Program (NKDEP) does not endorse the use of the MDRD equation for patients that are not between the ages of 18 and 70, are , have extremes of body size, muscle mass, or nutritional status, or are non- or non-. According to the National Kidney Foundation, irrespective of diagnosis, the stage of the disease is based on the level of kidney function: Stage Description GFR(mL/min/1.73 m(2)) 1 Kidney damage with normal or decreased GFR 90 2 Kidney damage with mild decrease in GFR 60-89 3 Moderate decrease in GFR 30-59 4 Severe decrease in GFR 15-29 5 Kidney failure <15 (or dialysis) 37 SEE RESULT BELOW Name: BALAJI MAZARIEGOS : [address]: Makenzie Reeves MD Acct: [id number] Unit: [id number] AGE: 24 Location: [facility] Re07/09/15 SEX: F Status: REG REF SPEC: [id number] KACIE: 07/09/15-[address] [facility] [address]: Makenzie Reeves MD REQ: [id number] RECD: 07/09/15 STATUS: COMP _ SOURCE: VAGINAL SPDESC: ORDERED: Genital Culture, BV Smear, Chiara,Yeast DNA Procedure Result Reported Site Genital Culture Final 07/11/15- 1143 ML Organism 1 NORMAL ANN Quantity 3+ Bacterial Vaginosis Smear Final 07/10/15- 0744 ML LACTOBACILLUS Many GARDNERELLA None MOBILUNCUS None Smear Interpretation Bacterial Vaginosis Not Likely Gardnerella/Yeast: Vaginal DNA Final 07/10/15- 1113 ML Organism 1 Negative Gardnerella Organism 2 Negative Richa The presence of G. vaginalis, although suggestive, is not diagnostic for bacterial vaginosis. Results should be interpreted in conjuction with other clinical and laboratory data available. Women with vaginal discharge should be evaluated for risk factors of cervicitis and pelvic inflammatory disease, toxic shock syndrome (S.aureus), and if present, evaluated for organisms not included in this assay such as N. gonorrhoeae, C. trachomatis, Mobiluncus, Mycoplasma and/or Prevotella. Mixed infections may occur. The performance of this test on patient specimens collected during or immediately after antimicrobial therapy is CONTINUED ON NEXT PAGE * ML=Testing performed at [facility] Lab DEPARTMENT OF PATHOLOGY, [address] [place] [address] Clarence Sahu M.D. Director [facility] # [id number] Patient: BALAJI MAZARIEGOS [id number] (Continued) Specimen: [id number] Collected: 07/09/15 Received: 07/09/15 (Continued) Procedure Result Reported Site Gardnerella/Yeast: Vaginal DNA Final (continued) 07/10/15- 1113 unknown. The presence or absence of Richa species, or G. vaginalis cannot be used as a test for therapeutic success or failure. * ML - MAIN LAB ([facility]) . END OF REPORT * ML=Testing performed at Main Lab DEPARTMENT OF PATHOLOGY, [address] [place] [address] Clarence Sahu M.D. Director [facility] # [id number] 38 SEE RESULT BELOW Name: BALAJI MAZARIEGOS : [address]: Makenzie Reeves MD Acct: [id number] Unit: [id number] AGE: 24 Location: [facility] Re07/09/15 SEX: F Status: REG REF SPEC: [id number] KACIE: 07/09/15-[address] [facility] [address]: Makenzie Reeves MD REQ: [id number] RECD: 07/09/15 STATUS: RES _ SOURCE: VAGINAL SPDESC: ORDERED: Genital Culture, BV Smear, Chiara,Yeast DNA Procedure Result Reported Site Genital Culture PENDING Bacterial Vaginosis Smear Final 07/10/15- 0744 ML LACTOBACILLUS Many GARDNERELLA None MOBILUNCUS None Smear Interpretation Bacterial Vaginosis Not Likely Gardnerella/Yeast: Vaginal DNA Final 07/10/15- 1113 ML Organism 1 Negative Gardnerella Organism 2 Negative Richa The presence of G. vaginalis, although suggestive, is not diagnostic for bacterial vaginosis. Results should be interpreted in conjuction with other clinical and laboratory data available. Women with vaginal discharge should be evaluated for risk factors of cervicitis and pelvic inflammatory disease, toxic shock syndrome (S.aureus), and if present, evaluated for organisms not included in this assay such as N. gonorrhoeae, C. trachomatis, Mobiluncus, Mycoplasma and/or Prevotella. Mixed infections may occur. The performance of this test on patient specimens collected during or immediately after antimicrobial therapy is unknown. The presence or absence of Richa species, or G. vaginalis cannot be used as a test for therapeutic success CONTINUED ON NEXT PAGE * ML=Testing performed at Main Lab DEPARTMENT OF PATHOLOGY, [address] [place] [address] Clarence Sahu M.D. Director [facility] # [id number] Patient: BALAJI MAZARIEGOS [id number] (Continued) Specimen: [id number] Collected: 07/09/15 Received: 07/09/15 (Continued) Procedure Result Reported Site Gardnerella/Yeast: Vaginal DNA Final (continued) 07/10/15- 1113 or failure. * ML - MAIN LAB ([facility]) . END OF REPORT * ML=Testing performed at Main Lab DEPARTMENT OF PATHOLOGY, [address] [place] [address] Clarence Sahu M.D. Director [facility] # [id number] 39 GC/Chlamydia Source?: Endocervical Trichomonas Source: Endocervical 40 Because ethnic data is not always readily available, this report includes an eGFR for both -Americans and non- Americans. The National Kidney Disease Education Program (NKDEP) does not endorse the use of the MDRD equation for patients that are not between the ages of 18 and 70, are , have extremes of body size, muscle mass, or nutritional status, or are non- or non-. According to the National Kidney Foundation, irrespective of diagnosis, the stage of the disease is based on the level of kidney function: Stage Description GFR(mL/min/1.73 m(2)) 1 Kidney damage with normal or decreased GFR 90 2 Kidney damage with mild decrease in GFR 60-89 3 Moderate decrease in GFR 30-59 4 Severe decrease in GFR 15-29 5 Kidney failure <15 (or dialysis) 41 SEE RESULT BELOW Name: BALAJI MAZARIEGOS : [address]: Makenzie Reeves MD Acct: [id number] Unit: [id number] AGE: 24 Location: [facility] Re03/31/15 SEX: F Status: REG REF SPEC: [id number] KACIE: 03/31/15-[address] [facility] [address]: Makenzie Reeves MD REQ: [id number] RECD: 03/31/15 STATUS: SOUT _ ORDERED: IMAGE ANALYSIS, HPV 16/18 GENE FINAL DIAGNOSIS Negative for Intraepithelial lesion or Malignancy A. Ectocervical/Endocervical Specimen Adequacy: Satisfactory of evaluation Transformation zone component identified Patient Information: HPV: Thin Layer Pap Test w/reflex to high risk HPV RNA testing when ASCUS HPV 16/18 Genotype for HPV pos Actual Specimen Date: 03/31/15 Last Menstrual Date: 03/25/15 Spec Date if unknown: First one Signed (signature on file) ALONZO Kulkarni (ASCP) 04/01 1325 This Pap test was evaluated with the assistance of the WappZappp Test Imaging System. Due to cytologic findings at the flight radio operator microscope, comprehensive manual rescreening by a Data Processing Systems Project Planner may be required. The Pap Smear is a screening test designed to aid in the detection of premalignant and malignant conditions of the uterine cervix. It is not a diagnostic procedure and should not be used as the sole means of detecting cervical cancer. Both false- positive and false- negative reports do occur. Depending on your risk status, a Pap smear should be obtained and evaluated every 1-3 years. END OF REPORT * ML=Testing performed at Main Lab DEPARTMENT OF PATHOLOGY, [address] [place] [address] Clarence Sahu M.D. Director [facility] # [id number] 42 Because ethnic data is not always readily available, this report includes an eGFR for both -Americans and non- Americans. The National Kidney Disease Education Program (NKDEP) does not endorse the use of the MDRD equation for patients that are not between the ages of 18 and 70, are , have extremes of body size, muscle mass, or nutritional status, or are non- or non-. According to the National Kidney Foundation, irrespective of diagnosis, the stage of the disease is based on the level of kidney function: Stage Description GFR(mL/min/1.73 m(2)) 1 Kidney damage with normal or decreased GFR 90 2 Kidney damage with mild decrease in GFR 60-89 3 Moderate decrease in GFR 30-59 4 Severe decrease in GFR 15-29 5 Kidney failure <15 (or dialysis) 43 Because ethnic data is not always readily available, this report includes an eGFR for both -Americans and non- Americans. The National Kidney Disease Education Program (NKDEP) does not endorse the use of the MDRD equation for patients that are not between the ages of 18 and 70, are , have extremes of body size, muscle mass, or nutritional status, or are non- or non-. According to the National Kidney Foundation, irrespective of diagnosis, the stage of the disease is based on the level of kidney function: Stage Description GFR(mL/min/1.73 m(2)) 1 Kidney damage with normal or decreased GFR 90 2 Kidney damage with mild decrease in GFR 60-89 3 Moderate decrease in GFR 30-59 4 Severe decrease in GFR 15-29 5 Kidney failure <15 (or dialysis) 44 Desirable <150 Borderline high 150-199 High 200-499 Very High >500 45 Desirable <200 Borderline high 200-239 High >239 46 Low <40 Desirable: 40-60 High: >60 47 Desirable: <100 mg/dL Near Optimal: 100-129 mg/dL Borderline High: 130-159 mg/dL High: 160-189 mg/dL Very High: >189 mg/dL 48 [facility] Specimen Source: endocervical 49 RUN DATE: 10/08/14 [facility] LAB LIVE PAGE 1 RUN TIME: [address] [place], [place] [address] Specimen Inquiry Name: BALAJI MAZARIEGOS : [address]: Bianca Aponte MD Acct: [id number] Unit: [id number] AGE: 24 Location: ED Re10/07/14 SEX: F Status: DEP ER SPEC: [id number] KACIE: 10/08/14-[address] [facility] [address]: Bianca Aponte MD REQ: [id number] RECD: 10/08/147 STATUS: MONALISA RUSSELL DR: Tiffany Capps MD _ SOURCE: VAGINAL SPDESC: ORDERED: Chiara,Yeast DNA Procedure Result Verified Site Gardnerella/Yeast: Vaginal DNA Final 10/08/14- 1126 ML Organism 1 Negative Gardnerella Organism 2 Negative Richa The presence of G. vaginalis, although suggestive, is not diagnostic for bacterial vaginosis. Results should be interpreted in conjuction with other clinical and laboratory data available. Women with vaginal discharge should be evaluated for risk factors of cervicitis and pelvic inflammatory disease, toxic shock syndrome (S.aureus), and if present, evaluated for organisms not included in this assay such as N. gonorrhoeae, C. trachomatis, Mobiluncus, Mycoplasma and/or Prevotella. Mixed infections may occur. The performance of this test on patient specimens collected during or immediately after antimicrobial therapy is unknown. The presence or absence of Richa species, or G. vaginalis cannot be used as a test for therapeutic success or failure. * ML - MAIN LAB ([facility]) . END OF REPORT * ML=Testing performed at Main Lab DEPARTMENT OF PATHOLOGY, [address] [place] [address] Clarence Sahu M.D. Director [facility] # [id number] 50 [facility] Specimen Source: endocervical Endocervical Endocervical 51 Female urine specimens have been self-validated by [facility] and have been granted conditional assay approval by [facility]. 52 Because ethnic data is not always readily available, this report includes an eGFR for both -Americans and non- Americans. The National Kidney Disease Education Program (NKDEP) does not endorse the use of the MDRD equation for patients that are not between the ages of 18 and 70, are , have extremes of body size, muscle mass, or nutritional status, or are non- or non-. According to the National Kidney Foundation, irrespective of diagnosis, the stage of the disease is based on the level of kidney function: Stage Description GFR(mL/min/1.73 m(2)) 1 Kidney damage with normal or decreased GFR 90 2 Kidney damage with mild decrease in GFR 60-89 3 Moderate decrease in GFR 30-59 4 Severe decrease in GFR 15-29 5 Kidney failure <15 (or dialysis) 53 Acute inflammation: >10.00 54 Because ethnic data is not always readily available, this report includes an eGFR for both -Americans and non- Americans. The National Kidney Disease Education Program (NKDEP) does not endorse the use of the MDRD equation for patients that are not between the ages of 18 and 70, are , have extremes of body size, muscle mass, or nutritional status, or are non- or non-. According to the National Kidney Foundation, irrespective of diagnosis, the stage of the disease is based on the level of kidney function: Stage Description GFR(mL/min/1.73 m(2)) 1 Kidney damage with normal or decreased GFR 90 2 Kidney damage with mild decrease in GFR 60-89 3 Moderate decrease in GFR 30-59 4 Severe decrease in GFR 15-29 5 Kidney failure <15 (or dialysis) 55 Results with Index Values of <36.00 are negative. Test Performed by: [place] [address] Manager Math: Pablo Tosacno II, M.D., Ph.D. 56 Results with Index Values of <8.95 are negative. Test Performed by: [place] [address] Manager Math: Pablo Toscano II, M.D., Ph.D. 57 Results with Index Values of <18.00 are negative. Test Performed by: [place] [address] Manager Math: Pablo Toscano II, M.D., Ph.D. 58 REFERENCE VALUE <4.0 (Negative) Test Performed by: [place] [id number] Manager Math: Pablo Toscano II, M.D., Ph.D. 59 Negative serology. Celiac disease unlikely. However, approximately 10% of patients with celiac disease are seronegative. Also, patients who are already adhering to a gluten-free diet may be seronegative. If celiac disease is highly clinically suspected, consider HLA-DQ typing. Test Performed by: [facility] [address] Manager Math: Pablo Toscano II, M.D., Ph.D. 60 Potassium reference range changed effective 05/19/14 61 Because ethnic data is not always readily available, this report includes an eGFR for both -Americans and non- Americans. The National Kidney Disease Education Program (NKDEP) does not endorse the use of the MDRD equation for patients that are not between the ages of 18 and 70, are , have extremes of body size, muscle mass, or nutritional status, or are non- or non-. According to the National Kidney Foundation, irrespective of diagnosis, the stage of the disease is based on the level of kidney function: Stage Description GFR(mL/min/1.73 m(2)) 1 Kidney damage with normal or decreased GFR 90 2 Kidney damage with mild decrease in GFR 60-89 3 Moderate decrease in GFR 30-59 4 Severe decrease in GFR 15-29 5 Kidney failure <15 (or dialysis) 62 Desirable <150 Borderline high 150-199 High 200-499 Very High >500 63 Desirable <200 Borderline high 200-239 High >239 64 Low <40 Desirable: 40-60 High: >60 65 Desirable <100 Near Optimal 100-129 Borderline high 130-159 High 160-189 Very High >189 66 FINAL INTERPRETATION: No HIV antibody is detected. . This information has been disclosed to you from confidential records which are protected by [place] State law. State law prohibits you from making further disclosure of this information without the specific written consent of the person to whom it pertains, or as otherwise permitted by law. Any unauthorized further disclosure in violation of state law may result in a fine or usp sentence or both. General authorization for the release of medical or other information is not, except in limited circumstances set forth in Part 63, Title 10, of [facility], sufficient authorization for further disclosure. Disclosure of confidential HIV information that occurs as the result of a general authorization for the release of medical or other information will be in violation of the state law and may result in a fine or a usp sentence. . 67 Anion gap measurement may be of limited value in the presence of any alkalosis, especially in a combined acid base disorder. . 68 A metabolite of Naproxen, O-desmethylnaproxen, has been shown to interfere with the Jendrassik-Eric method for measuring total bilirubin. Samples from patients who have taken Naproxen have shown spurious elevation in total bilirubin levels. 69 Because ethnic data is not always readily available, this report includes an eGFR for both -Americans and non- Americans. The National Kidney Disease Education Program (NKDEP) does not endorse the use of the MDRD equation for patients that are not between the ages of 18 and 70, are , have extremes of body size, muscle mass, or nutritional status, or are non- or non-. According to the National Kidney Foundation, irrespective of diagnosis, the stage of the disease is based on the level of kidney function: Stage Description GFR(mL/min/1.73 m(2)) 1 Kidney damage with normal or decreased GFR 90 2 Kidney damage with mild decrease in GFR 60-89 3 Moderate decrease in GFR 30-59 4 Severe decrease in GFR 15-29 5 Kidney failure <15 (or dialysis) Procedures Date CPT Code Description Status 06/04/2014 03701 Removal-Impacted Cerumen Completed 04/02/2014 00341 Therapeutic,Prophylactic,Or Diagnostic Inj,SC/Im Completed Specify Drug 12/24/2013 07497 Therapeutic,Prophylactic,Or Diagnostic Inj,SC/Im Completed Specify Drug Encounters Type Date Location Provider CPT E/M Dx Office Visit 07/29/2017 9:45a Main Office DG Crowder 84337 R10.9 Office Visit 06/24/2017 8:45a Main Office DG Crowder 30413 Z00.00 R07.9 Office Visit 04/28/2017 3:30p [place] [address] R51 R05 Office Visit 01/20/2017 10:45a [place] [address] R07.89 Office Visit 11/29/2016 3:15p Main Office Lynette Espinosa [facility] 65515 L30.9 R51 Office Visit 11/12/2016 10:15a Main Office Makenzie Reeves M.D., R.D. 59424 D48.5 Office Visit 10/15/2016 9:30a [place] [address] G43.009 R51 F31.81 Office Visit 09/07/2016 10:00a Main Office RONNY CrowderP-C 56192 R10.9 R19.7 Office Visit 08/30/2016 4:30p Main Office Lynette Espinosa [employer] 66502 R10.9 Office Visit 07/02/2016 10:00a Main Office Fernando Angel III [employer] 57636 H61.23 Z11.4 Office Visit 06/03/2016 3:30p [place] [address] G43.009 Office Visit 05/20/2016 4:15p [place] [address] L21.0 Z23 G43.009 Office Visit 05/17/2016 2:45p Main Office Makenzie Reeves M.D., R.D. 79498 J30.9 R51 Office Visit 04/13/2016 9:45a Main Office Fernando Angel III [employer]C 22680 Z01.818 Office Visit 03/05/2016 4:00p Main Office Fernando Angel III [employer] 61438 M79.642 Office Visit 12/12/2015 12:30p Main Office Makenzie Reeves M.D., R.D. 35637 M79.672 S50.861A Office Visit 10/09/2015 4:15p [place] [address] R21 Office Visit 09/24/2015 4:00p Main Office Makenzie Reeves M.D., R.D. 69789 R10.84 K21.9 M79.606 Office Visit 07/09/2015 11:15a Main Office Makenzie Reeves M.D., R.D. 83782 R10.30 Office Visit 03/31/2015 9:30a Main Office Makenzie Reeves M.D., R.D. 18553 V70.0 V72.31 784.0 724.8 296.89 314.01 309.81 V06.5 Office Visit 11/22/2014 10:15a Main Office EVA Crowder-C 44875 620.2 789.9 995.3 Office Visit 10/21/2014 11:15a Main Office Makenzie Reeves M.D., R.D. 44658 620.2 278.02 Office Visit 10/09/2014 2:30p Main Office EVA Crowder-C 48022 620.2 Office Visit 09/10/2014 4:00p Main Office EVA Crowder-C 14681 789.9 780.79 Office Visit 08/30/2014 9:30a Main Office EVA Crowder-C 26167 300.00 V25.09 848.9 Office Visit 08/08/2014 10:45a Main Office EVA Crowder-C 24474 848.9 706.1 300.00 Office Visit 07/23/2014 12:00p Main Office EVA Crowder-C 74202 300.00 Office Visit 06/18/2014 10:00a Main Office EVA Crowder-C 47031 300.00 380.4 Office Visit 06/04/2014 10:00a Main Office EVA Crowder-C 57868 V25.09 300.00 380.4 Office Visit 05/21/2014 9:15a Main Office EVA Crowder-C 54652 848.9 Office Visit 04/19/2014 2:45p Main Office Leighann Bro M.D. 12892 727.1 Office Visit 12/24/2013 10:15a Main Office Leighann Bro M.D. 70280 V70.0 V25.09 V17.41 V25.9 Office Visit 07/20/2010 9:45a Main Office Tiffany Capps M.D. 43713 995.83 787.01 784.0 780.2 Office Visit 07/02/2010 3:15p Main Office DG Dixon 73298 995.83 Office Visit 07/28/2009 4:00p Main Office Tiffany Capps M.D. 26176 782.1 Office Visit 06/03/2009 8:45a Main Office DG Dixon 90145 V70.0 Plan of Care 11/07/2017 - Segundo Johnson, MDM79.642 Pain in left handComments:She had a week of unexplained pain in the joints of her left side- this has now resolved, leaving her with a normal examination. This is an acute issue without apparent sequelae which does not seem concerning for any particular severe disease. No further treatment or workup is needed at this time.M25.562 Pain in left knee
[2017-11-26 08:52] VITALS: BP 114/68
--- NOTE | 2017-11-26 13:37 | UC ---
Law Rick Julia, scribed for Gwyn Jacome MD on 11/26/17 at 0912 . Upper Extremity HPI - HPI Summary HPI Summary: This patient is a 27 year old F presenting to [facility] with a chief complaint of left shoulder bruising since waking up this morning. Yesterday while going up the stairs at her long-term, she lost her balance, fell, and hit her left arm and shoulder. Patient denies pain and has full range of motion. Patient has no other complaints. - History of Current Complaint Chief Complaint: UCUpperExtremity Stated Complaint: ARM INJURY Time Seen by Provider: 11/26/17 09:00 Hx Obtained From: Patient Hx Last Menstrual Period: last month Onset/Duration: Lasting Hours Pain Intensity: 0 Pain Scale Used: 0-10 Numeric Character: Unable to Describe - bruising Associated Signs And Symptoms: Positive: Bruising - Allergies/Home Medications Allergies/Adverse Reactions: Allergies Allergy/AdvReac Type Severity Reaction Status Date / Time nickel Allergy Rash Verified 11/26/17 08:52 shellfish derived Allergy Anaphylatic Verified 11/26/17 08:52 Shock seasonal Allergy Eyes Uncoded 11/26/17 08:52 Itchy/Swollen/Red/Watery Home Medications: Home Medications Magnesium Oxide [Magnesium] 400 mg PO DAILY 11/26/17 [History Confirmed 11/26/17 ] Riboflavin (B2) (NF) [Vitamin B-2 (NF)] 100 mg PO DAILY 11/26/17 [History Confirmed 11/26/17] PMH/Surg Hx/FS Hx/Imm Hx Previously Healthy: Yes - Surgical History Surgical History: Yes Surgery Procedure, Year, and Place: tubes placed in ears as a child - Family History Known Family History: Negative: Cardiac Disease - Social History Lives: [place] Alcohol Use: None Substance Use Type: None Smoking Status (MU): Never Smoked Tobacco Review of Systems Constitutional: Negative Skin: Bruising - left arm Musculoskeletal: Negative All Other Systems Reviewed And Are Negative: Yes Physical Exam - Summary Physical Exam Summary: VITAL SIGNS: Reviewed. GENERAL: Patient is a well developed and nourished female who is lying comfortable in the stretcher. Patient is not in any acute respiratory distress. HEAD AND FACE: Normocephalic EYES: PERRLA, EOMI x 2. EARS: Hearing grossly intact. MOUTH: Oropharynx within normal limits. NECK: Supple, trachea is midline, no adenopathy, no JVD, no carotid bruit. CHEST: Symmetric, no tenderness at palpation LUNGS: Clear to auscultation bilaterally. No wheezing or crackles. CVS: Regular rate and rhythm, S1 and S2 present, no murmurs or gallops appreciated. ABDOMEN: Soft, non-tender. Bowel sounds are normal. No abdominal abnormal pulsations. EXTREMITIES: Full ROM in all major joints, no edema, no cyanosis or clubbing. Bruising in the left arm without any tenderness NEURO: Alert and oriented x 3. No acute neurological deficits. Speech is normal and follows commands. SKIN: Dry and warm Triage Information Reviewed: Yes Vital Signs: Initial Vital Signs Temp 97.4 F 11/26/17 08:49 Pulse 78 11/26/17 08:49 Resp 19 11/26/17 08:49 BP 114/68 11/26/17 08:49 Pulse Ox 100 11/26/17 08:49 Vital Signs Reviewed: Yes Upper Extremity Course/Dx - Course Course Of Treatment: This patient is a 27 year old F presenting to [facility] with a chief complaint of left shoulder bruising since waking up this morning. Yesterday while going up the stairs at her long-term, she lost her balance, fell, and hit her left arm and shoulder. Patient denies pain and has full range of motion. Patient has no other complaints. Because patient does not have any pain there is no need for XR. Patient has FROM, good capillary refill, and is neurovascularly intact. Therefore I recommend Tylenol for the pain. Patient agrees to follow up with their PCP. I discussed all the findings with the patient. Patient was instructed to return to the urgent care or go to ER immediately if any of the symptoms return or worsens. Plan of care was discussed with the patient, and patient understands and agrees. All questions were answered to patient satisfaction. There were no further complaints or concerns. - Differential Dx/Diagnosis Provider Diagnoses: accidental fall. bruising Discharge - Sign-Out/Discharge Documenting (check all that apply): Discharge/Admit/Transfer - Discharge Plan Condition: Stable Disposition: HOME Patient Education Materials: Fall Prevention (ED) Referrals: Makenzie Rodriguez MD [Primary Care Provider] - Additional Instructions: Take medications as instructed Increase your fluid intake Return to the if symptoms worsen The documentation as recorded by the Law dee Julia accurately reflects the service I personally performed and the decisions made by me, Gwyn Jacome MD.
== END 2017-11-26 09:15 | disposition home or self-care (01) ==
LOC: UCEAST 08:43
DX: S40.012A Contusion of left shoulder, initial encounter (principal); W10.9XXA Fall (on) (from) unspecified stairs and steps, initial encounter; Y93.01 Activity, walking, marching and hiking; Y92.099 Unspecified place in other non-institutional residence as the place of occurrence of the external cause
CPT/HCPCS: 99211; G0463

== ENCOUNTER 2018-03-30 16:18 | Emergency (ER) | payer MEDICARE, MEDICAID ==
[2018-03-30 16:36] VITALS: BP 111/68
--- NOTE | 2018-03-30 16:55 | UC ---
Knee Pain HPI - HPI Summary HPI Summary: recent onset of pain in the left knee, pain on going downstairs, previous episode of left knee pain a few months before was short lived, NO hx. of trauma - History of Current Complaint Chief Complaint: UCLowerExtremity Stated Complaint: KNEE PAIN Hx Obtained From: Patient Hx Last Menstrual Period: 03/18/18 Onset/Duration: Sudden Onset Severity Initially: Moderate Severity Currently: Moderate Pain Intensity: 8 Character: Sharp Aggravating Factor(s): Movement Alleviating Factor(s): Rest Associated Signs And Symptoms: Positive: Negative Able to Bear Weight: Yes - Allergies/Home Medications Allergies/Adverse Reactions: Allergies Allergy/AdvReac Type Severity Reaction Status Date / Time codeine Allergy Unknown Verified 03/30/18 16:24 Reaction Details nickel Allergy Rash Verified 03/30/18 16:24 shellfish derived Allergy Anaphylatic Verified 03/30/18 16:24 Shock seasonal Allergy Eyes Uncoded 03/30/18 16:24 Itchy/Swollen/Red/Watery Home Medications: Home Medications [place] Carbonate [[place] Carbonate 300 mg cap] 300 mg PO BEDTIME 03/30/18 [ History Confirmed 03/30/18] lamoTRIgine [Lamotrigine] 125 mg PO BEDTIME 03/30/18 [History Confirmed 03/30/18 ] PMH/Surg Hx/FS Hx/Imm Hx - Additional Past Medical History Additional PMH: hx. of bipolar disorder treated in the past Previously Healthy: Yes - Surgical History Surgical History: Yes Surgery Procedure, Year, and Place: tubes placed in ears as a child. right foot surgery - Family History Known Family History: Positive: None Negative: Cardiac Disease - Social History Alcohol Use: None Substance Use Type: None Smoking Status (MU): Never Smoked Tobacco Review of Systems Constitutional: Negative Skin: Negative Eyes: Negative ENT: Negative Respiratory: Negative Cardiovascular: Negative Gastrointestinal: Negative Genitourinary: Negative Motor: Negative Neurovascular: Negative Psychological: Other - bipolar disorder Is Patient Immunocompromised?: No All Other Systems Reviewed And Are Negative: Yes Physical Exam Triage Information Reviewed: Yes Appearance: Well-Appearing, No Pain Distress Vital Signs: Initial Vital Signs Temp 36.9 C 03/30/18 16:29 Pulse 72 03/30/18 16:29 Resp 16 03/30/18 16:29 BP 111/68 03/30/18 16:29 Pulse Ox 100 03/30/18 16:29 Vital Signs Reviewed: Yes Eye Exam: Normal Eyes: Positive: Conjunctiva Clear ENT Exam: Normal ENT: Positive: Normal ENT inspection Respiratory: Positive: Chest non-tender Musculoskeletal Exam: Other - left knee with full rom, no effusion, mild warmth to the touch, negative lachmans, negative anterior drawer test, negative Henna testing, walking without difficulty positive pain on pressure on the knee cap, gait normal Neurological Exam: Normal Psychological Exam: Normal Knee Pain Course/Dx - Differential Dx/Diagnosis Provider Diagnoses: chondromalacia patella left Discharge - Sign-Out/Discharge Documenting (check all that apply): Patient Departure All imaging exams completed and their final reports reviewed: Yes - Discharge Plan Condition: Good Disposition: HOME Patient Education Materials: Patellofemoral Pain Syndrome (ED) Referrals: Segundo Johnson MD [Primary Care Provider] - Additional Instructions: physical therapy - Billing Disposition and Condition Condition: GOOD Disposition: Home
--- NOTE | 2018-03-30 17:09 | RAD ---
Indication: Left knee pain. 4 views of left knee demonstrates no fracture. No evidence of joint effusion is noted. No other bone or joint abnormality is noted. IMPRESSION: No fracture of the left knee is noted.
== END 2018-03-30 17:30 | disposition home or self-care (01) ==
LOC: UCEAST 16:18
DX: M22.42 Chondromalacia patellae, left knee (principal); Z88.5 Allergy status to narcotic agent
CPT/HCPCS: 36415; 86703; 99211; G0463

== ENCOUNTER 2018-04-03 17:42 | Emergency (ER) | payer MEDICARE, MEDICAID ==
[2018-04-03 18:20] VITALS: BP 113/73
--- NOTE | 2018-04-03 18:42 | UC ---
Lower Extremity/Ankle HPI - HPI Summary HPI Summary: A 27 y/o female presents to [facility] c/o knee, leg and back pain reaching 8/10 in severity. As per triage, "Left knee, leg and back pain caused by losing her footing in the kitchen, aroun 1600 today. No home treatment prior to arrival". According to the patient, she was in a squatting down (frog position) when she was grabbing some milk from the refrigerator. In the process of grabbing some milk, she lost her footing and fell against her partners stove that was behind her. She noted that she had a knee injury prior to this incident and she felt pain after picking up some groceries. Patient has taken nothing for her pain or symptoms. n skin wounds. no strike head, no loc. Patient is allergic to Tylenol and Codeine. Patient indicated that she can take Ibuprofen. No possibility of . Pt medications reviewed this visit. - History of Current Complaint Chief Complaint: UCLowerExtremity Stated Complaint: KNEE,BACK PAIN Time Seen by Provider: 04/03/18 18:34 Hx Obtained From: Patient Hx Last Menstrual Period: [id number] Onset/Duration: Sudden Onset, Lasting Hours, Still Present Severity Initially: Severe Severity Currently: Severe Pain Intensity: 8 Pain Scale Used: 0-10 Numeric Aggravating Factor(s): Nothing Alleviating Factor(s): Nothing - Allergies/Home Medications Allergies/Adverse Reactions: Allergies Allergy/AdvReac Type Severity Reaction Status Date / Time codeine Allergy Unknown Verified 04/03/18 18:21 Reaction Details nickel Allergy Rash Verified 04/03/18 18:21 shellfish derived Allergy Anaphylatic Verified 04/03/18 18:21 Shock seasonal Allergy Eyes Uncoded 04/03/18 18:21 Itchy/Swollen/Red/Watery Home Medications: Home Medications Acetaminophen TAB* [Tylenol TAB*] 650 mg PO Q4H PRN 04/03/18 [History Confirmed 04/03/18] Cyclobenzaprine TAB* [Flexeril 10 MG TAB*] 10 mg PO DAILY WITH MEAL 04/03/18 [ History Confirmed 04/03/18] Multivitamin [Multivitamins] 1 each PO DAILY WITH MEAL 04/03/18 [History Confirmed 04/03/18] Propranolol HCl [Propranolol HCl ER] 160 mg PO BEDTIME 04/03/18 [History Confirmed 04/03/18] lamoTRIgine TAB(*) [LaMICtal TAB(*)] 25 mg PO BID 04/03/18 [History Confirmed ] lamoTRIgine [Lamictal Xr] 100 mg PO BEDTIME 04/03/18 [History Confirmed 04/03/18 ] PMH/Surg Hx/FS Hx/Imm Hx Previously Healthy: Yes Psychological History: Depression, Other - anxiety Other Psychological History: anxiety - Surgical History Surgical History: Yes Surgery Procedure, Year, and Place: tubes placed in ears as a child. right foot surgery - Family History Known Family History: Positive: Diabetes, Other - HEART ISSUES AND CANCER Negative: Cardiac Disease - Social History Lives: Assisted - [place] Alcohol Use: None Substance Use Type: None Smoking Status (MU): Never Smoked Tobacco Review of Systems Constitutional: Negative Skin: Negative Eyes: Negative ENT: Negative Respiratory: Negative Cardiovascular: Negative Gastrointestinal: Negative Genitourinary: Negative Motor: Negative Neurovascular: Negative Musculoskeletal: Other: - POSITIVE: BACK PAIN, KNEE AND LEG PAIN. Neurological: Negative Psychological: Negative Is Patient Immunocompromised?: No All Other Systems Reviewed And Are Negative: Yes Physical Exam - Summary Physical Exam Summary: Vital Signs Reviewed: Yes A+Ox3, no distress Eyes: Conjunctiva Clear, CHRISTIANO. EOM intact and full ENT: Hearing grossly normal TM x 2 clear, mmoist, uvula midline, no exudate, no erythema Neck: Positive: Supple Respiratory: Positive: No respiratory distress, No accessory muscle use + CTA throughout no w/r Cardiovascular: RRR nl s1, s2 no m/r CBT <2 sec abd soft + BS nt/nd no guarding, no distension Musculoskeletal Exam: No pain c/t/l/s full AROM pt easily walks, climbed onto exam table without difficulty pt demonstrated squatting position without difficulty + SLE b.l + flex/ext knee, ankle without difficulty Neurological: Positive: Alert, + sensation throughout Psychological: Positive: Normal Response To Family Skin: Positive: no rash, no ecchymosis no abraisons, contusion to knee, back Triage Information Reviewed: Yes Vital Signs: Initial Vital Signs Temp 98.3 F 04/03/18 18:13 Pulse 72 04/03/18 18:13 Resp 16 04/03/18 18:13 BP 113/73 04/03/18 18:13 Pulse Ox 100 04/03/18 18:13 Vital Signs Reviewed: Yes Lower Extremity Course/Dx - Course Course Of Treatment: PATIENT FACILITY FORMS COMPLETED AND NO RESTRICTIONS. Pt was sqautting earlier when fell backward striking her mid back and straining her right knee. no open wounds. no analgesia taken. pt with midl soreness with direct palp to right back but no lesions, edema. pt with full rom without difficulty. recommend motrin/apap. ice. rest. rocio as needed to knee. stretch. return precautions. pt and aide from facility comfortable and ketan greement wtih plan - Differential Dx/Diagnosis Provider Diagnoses: knee strain. contusion Discharge - Sign-Out/Discharge Documenting (check all that apply): Patient Departure - DISCHARGE All imaging exams completed and their final reports reviewed: No Studies - Discharge Plan Condition: Stable Disposition: HOME Patient Education Materials: Contusion in Adults (ED) Referrals: Segundo Johnson MD [Primary Care Provider] - Additional Instructions: - wear rocio wrap to your knee for comfort and support - okay to alternate ibuprofen (Advil Motrin) and tylenol every 3 hours as needed for pain - okay to apply heat to your back - slow gentle stretching execises - pain sometimes increases over the next 1-2 days - this is normal - - if you have ongoing pain, you should schedule a follow-up appointment with your primary care provider - Billing Disposition and Condition Condition: STABLE Disposition: Home - Attestation Statements Document Initiated by Maureenibe: Yes Documenting Scribe: Candido Velasquez Provider For Whom Amna is Documenting (Include Credential): Nuha Ceja MD Scribe Attestation: Candido Rick, scribed for Nuha Ceja MD on 04/05/18 at 1454. Scribe Documentation Reviewed: Yes Provider Attestation: The documentation as recorded by the maureenibCandido wing accurately reflects the service I personally performed and the decisions made by me, Nuha Ceja MD
[2018-04-03] MEDS ORDERED: Ibuprofen TAB* 600 MG PO ONE (18:55)
== END 2018-04-03 19:00 | disposition home or self-care (01) ==
LOC: UCEAST 17:42
DX: S86.912A Strain of unspecified muscle(s) and tendon(s) at lower leg level, left leg, initial encounter (principal); S80.02XA Contusion of left knee, initial encounter; S20.229A Contusion of unspecified back wall of thorax, initial encounter; W18.30XA Fall on same level, unspecified, initial encounter; Y93.89 Activity, other specified; Y92.000 Kitchen of unspecified non-institutional (private) residence as the place of occurrence of the external cause; F41.9 Anxiety disorder, unspecified; F32.9 Major depressive disorder, single episode, unspecified; Z88.5 Allergy status to narcotic agent; Z91.013 Allergy to seafood; Z91.048 Other nonmedicinal substance allergy status
CPT/HCPCS: 99212; A9270-GY; G0463

== ENCOUNTER 2018-08-03 12:49 | Emergency (ER) | payer MEDICARE, MEDICAID ==
[2018-08-03 13:04] VITALS: BP 109/74
--- NOTE | 2018-08-03 13:21 | UC ---
Upper Extremity HPI - HPI Summary HPI Summary: 27 yo with the chief complaint of bruising to the left upper arm that she says is 6 hours old. The patient says she fell on a edge of a table. She specifically denies any injury caused by her partner, and states that she feels safe at home. - History of Current Complaint Chief Complaint: UCUpperExtremity Stated Complaint: ARM INJURY Time Seen by Provider: 08/03/18 12:59 Hx Last Menstrual Period: may 2018 Pain Intensity: 6 - Allergies/Home Medications Allergies/Adverse Reactions: Allergies Allergy/AdvReac Type Severity Reaction Status Date / Time codeine Allergy Unknown Verified 08/03/18 13:04 Reaction Details nickel Allergy Rash Verified 08/03/18 13:04 shellfish derived Allergy Anaphylatic Verified 08/03/18 13:04 Shock seasonal Allergy Eyes Uncoded 08/03/18 13:04 Itchy/Swollen/Red/Watery PMH/Surg Hx/FS Hx/Imm Hx - Additional Past Medical History Additional PMH: on lithium; hx of anxiety. Patient denies significant PMH. Previously Healthy: Yes Psychological History: Depression - Surgical History Surgical History: Yes Surgery Procedure, Year, and Place: tubes placed in ears as a child. right foot surgery - Family History Known Family History: Positive: None, Cardiac Disease, Diabetes, Other - HEART ISSUES AND CANCER - Social History Occupation: Employed Full-time - [employer] Alcohol Use: None Substance Use Type: None Smoking Status (MU): Never Smoked Tobacco Review of Systems All Other Systems Reviewed And Are Negative: Yes Constitutional: Positive: Negative Skin: Positive: Negative Eyes: Positive: Negative ENT: Positive: Negative Respiratory: Positive: Negative Cardiovascular: Positive: Negative Gastrointestinal: Positive: Negative Genitourinary: Positive: Negative Motor: Positive: Negative Neurovascular: Positive: Negative Musculoskeletal: Positive: Myalgia - and ecchymosis left upper extremity Neurological: Positive: Negative Psychological: Positive: Negative Physical Exam Triage Information Reviewed: Yes Appearance: Well-Appearing Vital Signs: Initial Vital Signs Temp 97.8 F 08/03/18 13:00 Pulse 67 08/03/18 13:00 Resp 18 08/03/18 13:00 BP 109/74 08/03/18 13:00 Pulse Ox 100 08/03/18 13:00 Vital Signs Reviewed: Yes Eye Exam: Normal ENT Exam: Normal ENT: Positive: Normal ENT inspection Dental Exam: Normal Neck exam: Normal Neck: Positive: Supple, Other: - no spine tenderness Respiratory: Positive: Chest non-tender, Lungs clear, Normal breath sounds Cardiovascular: Positive: RRR, No Murmur, Pulses Normal Abdomen Description: Positive: Nontender, No Organomegaly, Soft Bowel Sounds: Positive: Present Musculoskeletal Exam: Normal Musculoskeletal: Positive: Strength Intact, ROM Intact - no point tenderness at elbow or shoulder, Edema @ - left upper extremity, Other: - Ecchymotic area over medial and lateral aspects of left forearm. Areas that appear to be resorbing; varies from red to green-yellow. Outline resembles are right hand grabbing the upper left arm. Neurological Exam: Normal Psychological Exam: Normal Skin Exam: Normal Upper Extremity Course/Dx - Course Course Of Treatment: 27 yo with the chief complaint of bruising to the left upper arm that she says is 6 hours old. The patient says she fell on a edge of a table. She specifically denies any injury caused by her partner, and states that she feels safe at home. Nurse spoke to patient when she was alone. x RAY FINAL reading not available at discharge. I read it as soft tissue swelling, no fracture. Ecchymotic area over medial and lateral aspects of left forearm. Areas that appear to be resorbing; varies from red to green-yellow. Outline resembles are right hand grabbing the upper left arm. - Differential Dx/Diagnosis Differential Diagnosis/HQI/PQRI: Fracture (Closed), Hematoma, Strain, Sprain, Other - abuse? Provider Diagnosis: Contusion Discharge - Sign-Out/Discharge Documenting (check all that apply): Patient Departure All imaging exams completed and their final reports reviewed: No - at 1430 the x ray would not transfer after radiologist dictated; i will recheck on final reading. - Discharge Plan Condition: Stable Disposition: HOME Patient Education Materials: Contusion in Adults (ED) Referrals: Segundo Johnson MD [Primary Care Provider] - Additional Instructions: WE DISCUSSED: My diagnosis is a contusion of the left upper arm. The final x-ray reading was not available but I did not see any broken bones in your x-ray. You have full range of motion and it does not appear that any joints have been injured. Go directly to the ER if you have any other orthopedic injuries. I will be here in 2 days. Feel free to call me with any questions or concerns about her condition. Use warm moist heat to this area and take acetaminophen for discomfort. Recheck at any time for increased pain, swelling or disability. If the final x- ray reading finds anything of concern, we will call you. - Billing Disposition and Condition Condition: STABLE Disposition: Home
--- NOTE | 2018-08-03 17:12 | UC ---
- Progress Note Progress Note: IMPRESSION: NO EVIDENCE FOR FRACTURE. No change in plan of care Course/Dx - Diagnoses Provider Diagnoses: Contusion Discharge - Sign-Out/Discharge Documenting (check all that apply): Post-Discharge Follow Up All imaging exams completed and their final reports reviewed: Yes - Discharge Plan Condition: Stable Disposition: HOME Patient Education Materials: Contusion in Adults (ED) Referrals: Segundo Johnson MD [Primary Care Provider] - Additional Instructions: WE DISCUSSED: My diagnosis is a contusion of the left upper arm. The final x-ray reading was not available but I did not see any broken bones in your x-ray. You have full range of motion and it does not appear that any joints have been injured. Go directly to the ER if you have any other orthopedic injuries. I will be here in 2 days. Feel free to call me with any questions or concerns about her condition. Use warm moist heat to this area and take acetaminophen for discomfort. Recheck at any time for increased pain, swelling or disability. If the final x- ray reading finds anything of concern, we will call you. - Billing Disposition and Condition Condition: STABLE Disposition: Home
== END 2018-08-03 14:30 | disposition home or self-care (01) ==
LOC: UCEAST 12:49
DX: S40.022A Contusion of left upper arm, initial encounter (principal); W18.09XA Striking against other object with subsequent fall, initial encounter; Y92.9 Unspecified place or not applicable; F32.9 Major depressive disorder, single episode, unspecified; Z88.5 Allergy status to narcotic agent; Z91.013 Allergy to seafood
CPT/HCPCS: 99211; G0463

== ENCOUNTER 2018-10-17 14:27 | Emergency (ER) | payer MEDICARE, MEDICAID ==
[2018-10-17 14:42] VITALS: BP 106/65
--- NOTE | 2018-10-17 15:04 | UC ---
Abdominal Pain Female HPI - HPI Summary HPI Summary: 28 female presents to the urgent care c/o nausea and upset stomach w/ mild chills since this morning. Pt reports she ate a breakfast bar this morning and went to work. Then she felt nauseated. She states she has been evaluated for her abdominal pain by her PCP. Abdominal US was done 2 weeks ago and it ws negative. Dx w/ Costochondritis sicne pain is around ribs. Pt also states she had an ear piercing removed from her RT ear lobe about 2 days. She has been applying Triple antibiotic and seh feels it is red and mild swelling. Epigastric abdominal pain is dull, intermittent and exacerbated w/ movement at times. Pain is 4/10. LMP: 3/ - History of Current Complaint Chief Complaint: UCGI Stated Complaint: NAUSEOUS Time Seen by Provider: 10/17/18 14:50 Hx Obtained From: Patient Hx Last Menstrual Period: 10/04/2018 ?: No - On OCP Onset/Duration: Gradual Onset, Lasting Hours - 10 hrs Pain Intensity: 8 Allergies/Adverse Reactions: Allergies Allergy/AdvReac Type Severity Reaction Status Date / Time codeine Allergy Unknown Verified 10/17/18 14:42 Reaction Details nickel Allergy Rash Verified 10/17/18 14:42 shellfish derived Allergy Anaphylatic Verified 10/17/18 14:42 Shock seasonal Allergy Eyes Uncoded 10/17/18 14:42 Itchy/Swollen/Red/Watery PMH/Surg Hx/FS Hx/Imm Hx - Surgical History Surgical History: Yes Surgery Procedure, Year, and Place: tubes placed in ears as a child. right foot surgery - Family History Known Family History: Positive: None, Cardiac Disease, Diabetes, Other - HEART ISSUES AND CANCER - Social History Alcohol Use: None Substance Use Type: None Smoking Status (MU): Never Smoked Tobacco Physical Exam Vital Signs: Initial Vital Signs Temp 98.0 F 10/17/18 14:37 Pulse 71 10/17/18 14:37 Resp 20 10/17/18 14:37 BP 106/65 10/17/18 14:37 Pulse Ox 100 10/17/18 14:37 Abd Pain Female Course/Dx - Differential Dx/Diagnosis Provider Diagnosis: Cellulitis of right earlobe, Bilateral impacted cerumen, Nausea alone Discharge - Sign-Out/Discharge Documenting (check all that apply): Patient Departure - D/C home - Discharge Plan Condition: Stable Disposition: HOME Prescriptions: Bacitracin OINTMENT* 1 applic TOPICAL BID #1 tube Cephalexin CAP* [Keflex CAP*] 500 mg PO TID #21 cap Ondansetron ODT TAB* [Zofran 4 MG Odt TAB*] 4 mg PO Q8H PRN #9 tab.odt PRN Reason: Nausea/Vomiting Patient Education Materials: Cellulitis (ED), Acute Nausea and Vomiting (ED), Cerumen Impaction (ED) Referrals: Segundo Johnson MD [Primary Care Provider] - 3 Days Vikas Reyes MD [Medical Doctor] - If Needed Additional Instructions: 1-Please take full course of Keflex PO as directed to alleviate mild cellulitis in the Rt earlobe. Apply Bacitracin topical oint as directed, keep wound dry and and clean 2- If redness and swelling doubles in size despite taking antibiotic and fever or severe abdominal pain develops please go to the ER immediately or F/u w/ ENT DR Reyes for further management. 3-Please F/u with your PCP in 3 days if not improvement for further evaluation and treatment on your symptoms. Increase hydration, eat small portions of meals and rest. 4- Tzke Anant PO as directed only if nausea and vomiting continues, - Billing Disposition and Condition Condition: STABLE Disposition: Home
[2018-10-17] MEDS ORDERED: Ondansetron ODT TAB* 4 MG PO ONE (15:19)
== END 2018-10-17 16:20 | disposition home or self-care (01) ==
LOC: UCEAST 14:27
DX: H60.11 Cellulitis of right external ear (principal); H61.23 Impacted cerumen, bilateral; R11.0 Nausea
CPT/HCPCS: 99213; A9270-GY; G0463

== ENCOUNTER 2019-05-28 13:21 | Emergency (ER) | payer MEDICARE, MEDICAID ==
--- NOTE | 2019-05-28 13:30 | ED ---
Back Pain - HPI Summary HPI Summary: Patient is a 28 y/o F presenting to [facility] via EMS with complaints of back, abdominal, and ribcage pain that onset yesterday, 05/27/19, around 1500/1600. She states that the pain is at her mid lower back and wraps around to be just below her breasts. Patient claims that the location of pain alternates between her right and left side. Pain is less severe compared to yesterday but still noticeable. She reports some nausea and one episode of emesis is noted. Sore throat, SOB, diarrhea, constipation, fever, swelling are denied. Tobacco, alcohol, substance usage are denied. Home medications and allergies are reviewed. In room, vitals are pulse 77, BP 131/83, o2 86 on RA. - History of Current Complaint Stated Complaint: BACK PAIN PER EMS Time Seen by Provider: 05/28/19 13:24 Hx Obtained From: Patient Hx Last Menstrual Period: 10/04/2018 Onset/Duration: Lasting Days, Still Present Onset/Duration: Started Days Ago, Atraumatic, Still Present Timing: Constant, Lasting Days Back Pain Location: Is Discrete @ - lower mid back, Radiates To - wraps around to be just below breasts Pain Intensity: 10 Pain Scale Used: 0-10 Numeric Associated Signs And Symptoms: Positive: Abdominal Pain, Other - Sore throat, SOB, diarrhea, constipation, fever, swelling are denied. N/V are endorsed.. Negative: Fever - Allergies/Home Medications Allergies/Adverse Reactions: Allergies Allergy/AdvReac Type Severity Reaction Status Date / Time codeine Allergy Unknown Verified 10/17/18 14:42 Reaction Details nickel Allergy Rash Verified 10/17/18 14:42 shellfish derived Allergy Anaphylatic Verified 10/17/18 14:42 Shock seasonal Allergy Eyes Uncoded 10/17/18 14:42 Itchy/Swollen/Red/Watery Home Medications: Home Medications Cyanocobalamin TAB* [Vitamin B12 TAB*] 500 mcg PO DAILY 05/28/19 [History Confirmed 05/28/19] [place] Carbonate ER (NF) [[place] Carbonate ER] 300 mg PO BID 05/28/19 [ History Confirmed 05/28/19] Metoclopramide TAB* [Reglan TAB*] 5 mg PO TID 05/28/19 [History Confirmed ] PMH/Surg Hx/FS Hx/Imm Hx Endocrine/Hematology History: Denies: Hx Diabetes, Hx Thyroid Disease Cardiovascular History: Denies: Hx Hypertension, Hx Pacemaker/ICD Respiratory History: Denies: Hx Asthma, Hx Chronic Obstructive Pulmonary Disease (COPD) GI History: Reports: Hx Gastroesophageal Reflux Disease Denies: Hx Ulcer History: Denies: Hx Renal Disease Musculoskeletal History: Reports: Other Musculoskeletal History - recent diagnosis TMJ Sensory History: Reports: Hx Contacts or Glasses Denies: Hx Hearing Aid Opthamlomology History: Reports: Hx Contacts or Glasses Neurological History: Reports: Other Neuro Impairments/Disorders - occassionally a headache Psychiatric History: Reports: Hx Anxiety - mental disability Denies: Hx Panic Disorder - Surgical History Surgery Procedure, Year, and Place: tubes placed in ears as a child. right foot surgery Hx Anesthesia Reactions: No Infectious Disease History: No Infectious Disease History: Denies: Hx Hepatitis, Hx Human Immunodeficiency Virus (HIV), Traveled Outside the [place] in Last 30 Days - Family History Known Family History: Positive: Cardiac Disease, Diabetes, Other - HEART ISSUES AND CANCER - Social History Alcohol Use: None Substance Use Type: Reports: None Smoking Status (MU): Never Smoked Tobacco Review of Systems Negative: Fever Negative: Sore Throat Negative: Shortness Of Breath Gastrointestinal: Other - negative - constipation Positive: Abdominal Pain, Vomiting, Nausea. Negative: Diarrhea Musculoskeletal: Other - positive - back and ribcage pain Negative: Edema All Other Systems Reviewed And Are Negative: Yes Physical Exam - Summary Physical Exam Summary: Constitutional: Well-developed, Well-nourished, Alert. (-) Distressed Skin: Warm, Dry HENT: Normocephalic; Atraumatic Eyes: Conjunctiva normal Neck: Musculoskeletal ROM normal neck. (-) JVD, (-) Stridor, (-) Tracheal deviation Cardio: Rhythm regular, rate normal, Heart sounds normal; Intact distal pulses; The pedal pulses are 2+ and symmetric. Radial pulses are 2+ and symmetric. (-) Murmur Pulmonary/Chest wall: Effort normal. (-) Respiratory distress, (-) Wheezes, (-) Rales Abd: Soft, (+) Mild epigastric, RUQ and LUQ tenderness (-) Distension, (-) Guarding, (-) Rebound Musculoskeletal: (-) Edema Lymph: (-) Cervical adenopathy Neuro: Alert, Oriented x3 Psych: Mood and affect Normal Triage Information Reviewed: Yes Vital Signs On Initial Exam: Initial Vitals Temp Pulse Resp BP Pulse Ox 98.4 F 77 18 131/83 100 05/28/19 13:21 05/28/19 13:21 05/28/19 13:21 05/28/19 13:21 05/28/19 13:21 Vital Signs Reviewed: Yes Procedures - Sedation Patient Received Moderate/Deep Sedation with Procedure: No Diagnostics - Vital Signs Vital Signs Temp Pulse Resp BP Pulse Ox 05/28/19 13:21 98.4 F 77 18 131/83 100 - Laboratory Result Diagrams: 05/28/19 13:49 05/28/19 13:49 Lab Statement: Any lab studies that have been ordered have been reviewed, and results considered in the medical decision making process. - Ultrasound ABDOMEN US Ultrasound Interpretation Completed By: Radiologist Summary of Ultrasound Findings: ABDOMEN US IMPRESSION: #. Hepatosteatosis. #. Negative for gallbladder pathology. #. Negative for obstructive uropathy. THIS REPORT WAS REVIEWED BY ED PHYSICIAN. Re-Evaluation - Re-Evaluation First Eval Re-Evaluation Time: 15:51 Change: Improved Comment: Patient reports that Sx have completely resolved. Back Pain Course/Dx - Course Course Of Treatment: Patient is a 28 y/o F presenting to [facility] via EMS with complaints of back and ribcage pain that onset yesterday, 05/27/19, around 1500/ 1600. She states that the pain is at her mid lower back and wraps around to be just below her breasts. Patient claims that the location of pain alternates between her right and left side. Pain is less severe compared to yesterday but still noticeable. She reports some nausea and one episode of emesis is noted. (+ ) Mild epigastric, RUQ and LUQ tenderness on exam. Bloodwork was obtained and WNL with exception of creatinine 1.09, glucose 104, lipase < 10. UA showed ascorbic acid. During ED course, patient received Toradol 30 mg IV and Pepcid 40 mg IV. ABDOMEN US IMPRESSION: #. Hepatosteatosis. #. Negative for gallbladder pathology. #. Negative for obstructive uropathy. Patient reports that Sx have completely resolved. She was discharged to home and will follow up with PCP. - Diagnoses Provider Diagnoses: Acute abdominal pain Discharge ED - Sign-Out/Discharge Documenting (check all that apply): Patient Departure - discharge - Discharge Plan Condition: Stable Disposition: HOME Patient Education Materials: Acute Abdominal Pain (ED) Print Language: UPPER SORBIAN Referrals: Segundo Johnson MD [Primary Care Provider] - - Billing Disposition and Condition Condition: STABLE Disposition: Home - Attestation Statements Document Initiated by Scribe: Yes Documenting Scribe: MAGAN WU Provider For Whom Scribe is Documenting (Include Credential): MALIA VELIZ MD Scribe Attestation: IMAGAN, scribed for MALIA SCHAEFER MD on 05/28/19 at 1825. Scribe Documentation Reviewed: Yes Provider Attestation: The documentation as recorded by the MAGAN dee accurately reflects the service I personally performed and the decisions made by me, MALIA SCHAEFER MD Status of Scribe Document: Viewed
[2019-05-28] MEDS ORDERED: Famotidine IV* 10 MG/ML 2 ML (20 mg) IV SLOW PU ONE (13:34)
[2019-05-28] MEDS ORDERED: Ketorolac INJ* 30 MG/ML 1 ML VIAL IV PUSH ONE (13:34)
[2019-05-28 13:59] LABS: ABS Eosinophils 0.1 10^3/ul (0-0.6); ABS Lymphocytes 1.8 10^3/ul (1.0-4.8); ABS Monocytes 0.4 10^3/ul (0-0.8); ABS Neutrophils 6.4 10^3/ul (1.5-7.7); Eosinophil % 1.7 %; Hematocrit 42 % (35-47); Hemoglobin 14.4 g/dL (12.0-16.0); Lymphocyte % 20.3 %; Mean Corpuscular HGB Conc 34 g/dL (31-36); Mean Corpuscular Hemoglobin 31 pg (27-31); Mean Corpuscular Volume 91 fL (80-97); Mean Platelet Volume 8.4 fL (7.4-10.4); Platelet Count 273 10^3/uL (150-450); Red Blood Count 4.64 10^6 /uL (3.70-4.87); Red Cell Distribution Width 14 % (10-15); White Blood Count 8.7 10^3/uL (3.5-10.8)
[2019-05-28 14:02] LABS: Urine Appearance Clear; Urine Bilirubin Negative (Negative); Urine Blood Negative (Negative); Urine Color Yellow; Urine Glucose Negative (Negative); Urine Ketones Negative (Negative); Urine Nitrite Negative (Negative); Urine Protein Negative (Negative); Urine Urobilinogen Negative (Negative)
[2019-05-28 14:24] LABS: ALT 21 U/L (7-52); AST 19 U/L (13-39); Albumin 4.5 g/dL (3.2-5.2); Albumin/Globulin Ratio 1.6 (1-3); Alkaline Phosphatase 90 U/L (34-104); Anion Gap 7 mmol/L (2-11); BUN/Creatinine Ratio 9.2 (8-20); Blood Urea Nitrogen 10 mg/dL (6-24); C Reactive Protein 6.26 mg/L (<8.01); CO2 Carbon Dioxide 27 mmol/L (22-32); Calcium 9.8 mg/dL (8.6-10.3); Chloride 107 mmol/L (101-111); EGFR African American 72.3 (>60); EGFR Non-African American 59.8 (>60); Globulin 2.9 g/dL (2-4); Glucose 104 mg/dL (70-100); Potassium 3.8 mmol/L (3.5-5.0); Sodium 141 mmol/L (135-145); Total Protein 7.4 g/dL (6.4-8.9)
[2019-05-28 14:29] LABS: HCG Pregnancy 0.63 mIU/mL
[2019-05-28 15:59] VITALS: BP 109/78
== END 2019-05-28 15:59 | disposition home or self-care (01) ==
LOC: ED 13:21
DX: R10.9 Unspecified abdominal pain (principal); K21.9 Gastro-esophageal reflux disease without esophagitis; F41.9 Anxiety disorder, unspecified; Z88.5 Allergy status to narcotic agent
CPT/HCPCS: 36415; 76700; 80053; 81003; 83605; 83690; 84702; 85025; 86140; 96374; 96375; 99282; J1885

== ENCOUNTER 2019-09-01 16:59 | Emergency (ER) | payer MEDICARE, MEDICAID ==
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
--- OUTSIDE RECORDS SUMMARY | 2019-09-01 17:08 | XMS REPORT | Continuity of Care Document ---
:1990 External Reference #:[id number] Author Name Cristi Fairbanks N.P. 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 Medicine Problems Active Problems Provider Date Disturbance of consciousness Hillary Dick MD Onset: 07/19/2017 Chronic tension-type headache Hillary Dick MD Onset: 02/25/2017 Migraine without aura, not refractory Hillary Dick MD Onset: 02/25/2017 Social History Type Date Description Comments Sex Unknown ETOH Use Denies alcohol use Tobacco Use Start: Unknown Patient has never smoked Smoking Status Reviewed: 08/03/19 Patient has never smoked Allergies, Adverse Reactions, Alerts Active Allergies Reaction Severity Comments Date Nickel 02/25/2017 Shellfish-Derived Products 02/25/2017 Medications Active Medications SIG Qnty Indications Ordering Date Provider Aimovig inject with one 140 1ml G43.009 Cristi Fairbanks, 08/03/2019 140mg/ml mg auto-inject pen, N.P. Solution subcutaneous Auto-Inject injection once a month Naratriptan HCL 1 twice a day as 12tabs G43.009 Hillary Dick MD 01/10/2018 needed for headache 2.5mg Tablets max 2 days a week Multi Vitamin Daily 1 by mouth every day Unknown Tablets Strathmore Carbonate 2 tabs daily qd 2 Unknown ER tab po qhs 300mg Tablets ER Magnesium 1 tab po bid Unknown 300mg Capsules Melatonin 2 tab by mouth every Unknown 10mg night at bedtime Capsules Riboflavin 1 tab po bid Unknown 100mg Capsules Lamictal XR take 2 by mouth bid Unknown 100mg Tablets ER 24HR Omeprazole 1 by mouth every day Unknown 40mg Capsules DR Cason 08/06 as directed Unknown 1-20mg-mcg Tablets Immunizations Description No Information Available Vital Signs Date Vital Result Comment 08/03/2019 10:54am Height 65 inches 5'5" Weight 180.00 lb Heart Rate 72 /min BP Systolic Sitting 122 mmHg BP Diastolic Sitting 70 mmHg Respiratory Rate 18 /min BMI (Body Mass Index) 30.0 kg/m2 02/16/2019 10:46am Height 65 inches 5'5" Weight 171.00 lb Heart Rate 83 /min BP Systolic 108 mmHg BP Diastolic 76 mmHg BMI (Body Mass Index) 28.5 kg/m2 Results Description No Information Available Procedures Date Code Description Status 04/12/2019 44038 Holter Monitor Review (24 hr) review & interp only Completed 04/09/2019 35473 ECG Monitor/Recording W/Visual Superimposition Scanning Completed Medical Devices Description No Information Available Encounters Type Date Location Provider Dx Diagnosis Office Visit 02/16/2019 [facility] Cristi Fairbanks, G43.009 Migraine w/o aura, 10:[facility] not intractable, w/o status migrainosus G44.221 Chronic tension-type headache, intractable Assessments Date Code Description Provider 08/03/2019 G43.009 Migraine without aura, not intractable, Cristi Fairbanks, N.P. without status migra 08/03/2019 G44.221 Chronic tension-type headache, intractable Cristi Fairbanks, N.P. 04/12/2019 R55 Syncope and collapse Tabby Hernandez M.D. 04/09/2019 R55 Syncope and collapse Nurse Visit 02/16/2019 G43.009 Migraine without aura, not intractable, Cristi Fairbanks, N.P. without status migra 02/16/2019 G44.221 Chronic tension-type headache, intractable Cristi Fairbanks, N.P. Plan of Treatment Future Appointment(s):11/20/2019 11:00 am - Harman Stauffer M.D. at [facility]08/03/2019 - Cristi Fairbanks, N.P.G43.009 Migraine without aura, not intractable, without status migraNew Medication:Aimovig 140 mg /ml - inject with one 140 mg auto-inject pen, subcutaneous injection once a monthNew Xrays:MRI Brain W/O, Ordered: 08/03/19Follow up:3 monthsRecommendations :At your next dose for the Aimovig please take 140mg on August 14G44.221 Chronic tension-type headache, intractable Functional Status Description No Information Available Mental Status Description No Information Available Referrals Description No Information Available
[2019-09-01 17:24] VITALS: BP 127/97
--- NOTE | 2019-09-01 17:51 | UC ---
Syncope/New Syncope HPI - HPI Summary HPI Summary: PATIENT REPORTS SYNCOPAL EPISODE TODAY WHILE AT THE BUS STOP. STATES SHE HAS BEEN FEELING DIZZY AND LIGHTHEADED ON AND OFF ALL DAY. REPORTS A SIMILAR EVENT 4 DAYS AGO ON 08/28/2019. SAW HER PCP AND HAD A NORMAL CBC AND BMP. REPORTS A NORMAL EKG AT THAT TIME WELL. OF NOTE PATIENT WAS TAKING LITHIUM AND LAMICTAL FOR BIPOLAR DISORDER BUT WAS TAKEN OFF THESE MEDICATIONS ABOUT 1 MONTH AGO AND STARTED ON ABILIFY. - History Of Current Complaint Chief Complaint: UCGeneralIllness Stated Complaint: SYNCOPE Time Seen by Provider: 09/01/19 17:22 Hx Obtained From: Patient, Family/[employer] - FIANCE Hx Last Menstrual Period: 08/25/19 Onset/Duration: Sudden Onset Activity At Onset: At Rest Context: Loss Of Consciousness Pain Intensity: 0 Pain Scale Used: 0-10 Numeric Aggravating Factor(s): Nothing Alleviating Factor(s): Spontaneous Resolution Associated Signs And Symptoms: Positive: Dizzy, Headache, Lightheadedness. Negative: Chest Pain, Head Trauma (Recent), Seizure, Shortness Of Breath - Allergies/Home Medications Allergies/Adverse Reactions: Allergies Allergy/AdvReac Type Severity Reaction Status Date / Time codeine Allergy Unknown Verified 09/01/19 17:24 Reaction Details nickel Allergy Rash Verified 09/01/19 17:24 shellfish derived Allergy Anaphylatic Verified 09/01/19 17:24 Shock seasonal Allergy Eyes Uncoded 09/01/19 17:24 Itchy/Swollen/Red/Watery Home Medications: Home Medications ARIPiprazole TAB* [Abilify TAB*] 10 mg PO DAILY 09/01/19 [History Confirmed ] PMH/Surg Hx/FS Hx/Imm Hx Neurological History: Migraine Psychological History: Anxiety, Depression, Bipolar Disorder - Surgical History Surgical History: Yes Surgery Procedure, Year, and Place: tubes placed in ears as a child. right foot surgery. wisdom teeth - Family History Known Family History: Positive: None, Cardiac Disease, Diabetes, Other - HEART ISSUES AND CANCER - Social History Alcohol Use: Rare Substance Use Type: None Smoking Status (MU): Never Smoked Tobacco Review of Systems All Other Systems Reviewed And Are Negative: Yes Constitutional: Positive: Negative Skin: Positive: Negative Respiratory: Positive: Negative Cardiovascular: Positive: Negative Gastrointestinal: Positive: Negative Neurological/Mental Status: Positive: Headache, Other - dizzy, lightheaded, syncope Physical Exam Triage Information Reviewed: Yes Appearance: Well-Appearing, No Pain Distress, Well-Nourished Vital Signs: Initial Vital Signs Temp 99.0 F 09/01/19 17:17 Pulse 86 09/01/19 17:17 Resp 16 09/01/19 17:17 BP 127/97 09/01/19 17:17 Pulse Ox 100 09/01/19 17:17 Vital Signs Reviewed: Yes Eyes: Positive: Conjunctiva Clear, Other: - PERRL, EOMI ENT: Positive: Hearing grossly normal, Pharynx normal, TMs normal Neck: Positive: Supple, Nontender, No Lymphadenopathy Respiratory Exam: Normal Cardiovascular Exam: Normal Abdomen Description: Positive: Soft Musculoskeletal: Positive: No Edema Neurological: Positive: Alert, Other: - CN II-XII GROSSLY INTACT BILATERALLY. RAPID ALTERNATING MOVEMENTS INTACT. NEG PRONATOR DRIFT. NEG ROMBERG. 5/5 STRENGTH. HEEL TO SHAHID INTACT BILATERALLY. TANDEM GAIT INTACT. Psychological: Positive: Age Appropriate Behavior Skin: Negative: Rashes Diagnostics - EKG Cardiac Rate: NL - 63BPM Cardiac Rhythm: Sinus: Normal Ectopy: None ST Segment: Normal - + Syncope Course/Dx - Course Course Of Treatment: PATIENT PRESENTS WITH 2 EPISODES OF SYNCOPE OVER THE PAST FEW DAYS. NORMAL CBC AND BMP 4 DAYS AGO. EKG UNREMARKABLE HERE IN THE . RECENT CHANGE FROM LITHIUM AND LAMICTAL TO ABILIFY TO MANAGE HER MOOD DISORDERS. ABILIFY DOES CARRY WITH IT SYNCOPE A POSSIBLE ADVERSE REACTION HOWEVER PATIENT WOULD BENEFIT FROM FURTHER WORKUP. SHE REQUIRES A HIGHER LEVEL OF SERVICE THAN WHAT IS AVAILABLE IN THE URGENT CARE. TO [facility] BY AMBULANCE. - Differential Dx/Diagnosis Provider Diagnosis: Syncope - Physician Notification/Consults Discussed Patient Care With: Osbaldo Barone - TO [facility] BY AMBULANCE Time Discussed With Above Provider: 18:00 Instructed by Provider To: MD Will See In ED Discharge ED - Sign-Out/Discharge Documenting (check all that apply): Patient Departure All imaging exams completed and their final reports reviewed: No Studies - Discharge Plan Condition: Stable Disposition: TRANS HIGHER LVL OF CARE FAC Referrals: Segundo Johnson MD [Primary Care Provider] - - Billing Disposition and Condition Condition: STABLE Disposition: Trans Higher Lvl of Care Fac
== END 2019-09-01 18:30 | disposition short-term general hospital (02) ==
LOC: UCEAST 16:59
DX: R55 Syncope and collapse (principal); F31.9 Bipolar disorder, unspecified; F41.8 Other specified anxiety disorders; Z88.5 Allergy status to narcotic agent; Z91.013 Allergy to seafood; Z91.09 Other allergy status, other than to drugs and biological substances; K21.9 Gastro-esophageal reflux disease without esophagitis; F41.9 Anxiety disorder, unspecified; Z79.899 Other long term (current) drug therapy
CPT/HCPCS: 93005; 99213; G0463

== ENCOUNTER 2019-09-01 18:40 | Emergency (ER) | payer MEDICARE, MEDICAID ==
[2019-09-01] MEDS ORDERED: NS 0.9% 1000 ML** 1,000 ML IV ONE (18:57)
[2019-09-01 19:10] LABS: ABS Eosinophils 0.2 10^3/ul (0-0.6); ABS Lymphocytes 2.5 10^3/ul (1.0-4.8); ABS Monocytes 0.5 10^3/ul (0-0.8); ABS Neutrophils 4.6 10^3/ul (1.5-7.7); Eosinophil % 2.6 %; Hematocrit 37 % (35-47); Hemoglobin 12.9 g/dL (12.0-16.0); Lymphocyte % 31.6 %; Mean Corpuscular HGB Conc 35 g/dL (31-36); Mean Corpuscular Hemoglobin 31 pg (27-31); Mean Corpuscular Volume 90 fL (80-97); Mean Platelet Volume 8.3 fL (7.4-10.4); Platelet Count 266 10^3/uL (150-450); Red Blood Count 4.13 10^6 /uL (3.70-4.87); Red Cell Distribution Width 14 % (10-15); White Blood Count 7.8 10^3/uL (3.5-10.8)
[2019-09-01 19:24] LABS: Albumin 4.3 g/dL (3.2-5.2); Anion Gap 7 mmol/L (2-11); CO2 Carbon Dioxide 28 mmol/L (22-32); Calcium 9.4 mg/dL (8.6-10.3); Chloride 106 mmol/L (101-111); Magnesium 1.8 mg/dL (1.9-2.7); Potassium 3.7 mmol/L (3.5-5.0); Sodium 141 mmol/L (135-145)
[2019-09-01 19:30] LABS: ALT 16 U/L (7-52); AST 16 U/L (13-39); Albumin/Globulin Ratio 1.5 (1-3); Alkaline Phosphatase 98 U/L (34-104); Blood Urea Nitrogen 15 mg/dL (6-24); EGFR African American 91.9 (>60); Globulin 2.9 g/dL (2-4); Glucose 88 mg/dL (70-100); Total Protein 7.2 g/dL (6.4-8.9)
[2019-09-01 19:33] LABS: HCG Pregnancy < 0.60 mIU/mL
--- NOTE | 2019-09-01 19:39 | ED ---
Syncope/Near Syncope - HPI Summary HPI Summary: Pt is a 29 y/o F presenting to the ED with a chief complaint of syncope. She states on 08/27/19 she was at work when she suddenly felt dizzy/lightheaded and lost consciousness briefly, but she recovered well. Did not hit head. Today, she was at the bus stop when she had a similar episode and she let her partner know who recommended she go to urgent care. They did an EKG and they advised her to come here for further workup. She recently stopped her Donnellson and Lamictal and started her Abilify on 08/02/19, but has been fine. She currently feels fine, and denies any pain. Saw PCP earlier this week for similar. Hx syncope many years ago and had workup including holter. Pt's EKG from shows NSR at 63bpm with T-wave inversions in lead v1. - History Of Current Complaint Chief Complaint: EDSyncope Time Seen by Provider: 09/01/19 18:56 Hx Obtained From: Patient Onset/Duration: Sudden Onset, Lasting Minutes Timing: Intermittent Episode Lasting - min Context: Loss Of Consciousness Activity At Onset: At Rest Associated Head Trauma: No Aggravating Factor(s): Nothing Alleviating Factor(s): Spontaneous Resolution Associated Signs And Symptoms: Dizzy - Allergies/Home Medications Allergies/Adverse Reactions: Allergies Allergy/AdvReac Type Severity Reaction Status Date / Time codeine Allergy Unknown Verified 09/01/19 17:24 Reaction Details nickel Allergy Rash Verified 09/01/19 17:24 shellfish derived Allergy Anaphylatic Verified 09/01/19 17:24 Shock seasonal Allergy Eyes Uncoded 09/01/19 17:24 Itchy/Swollen/Red/Watery PMH/Surg Hx/FS Hx/Imm Hx Previously Healthy: Yes Endocrine/Hematology History: Denies: Hx Diabetes, Hx Thyroid Disease Cardiovascular History: Denies: Hx Hypertension, Hx Pacemaker/ICD Respiratory History: Denies: Hx Asthma, Hx Chronic Obstructive Pulmonary Disease (COPD) GI History: Reports: Hx Gastroesophageal Reflux Disease Denies: Hx Ulcer History: Denies: Hx Renal Disease Musculoskeletal History: Reports: Other Musculoskeletal History - recent diagnosis TMJ Sensory History: Reports: Hx Contacts or Glasses Denies: Hx Hearing Aid Opthamlomology History: Reports: Hx Contacts or Glasses Neurological History: Reports: Other Neuro Impairments/Disorders - occassionally a headache Psychiatric History: Reports: Hx Anxiety - mental disability Denies: Hx Panic Disorder - Surgical History Surgery Procedure, Year, and Place: tubes placed in ears as a child. right foot surgery. wisdom teeth Hx Anesthesia Reactions: No Infectious Disease History: No Infectious Disease History: Denies: Hx Hepatitis, Hx Human Immunodeficiency Virus (HIV), Traveled Outside the [place] in Last 30 Days - Family History Known Family History: Positive: Cardiac Disease, Diabetes, Other - HEART ISSUES AND CANCER - Social History Alcohol Use: Occasionally Hx Substance Use: No Substance Use Type: Reports: None Hx Tobacco Use: No Smoking Status (MU): Never Smoked Tobacco Review of Systems Negative: Myalgia Neurological/Mental Status: Other - dizziness Positive: Syncope All Other Systems Reviewed And Are Negative: Yes Physical Exam - Summary Physical Exam Summary: Constitutional: Well-developed, Well-nourished, Alert. (-) Distressed Skin: Warm, Dry HENT: Normocephalic; Atraumatic Eyes: Conjunctiva normal Neck: Musculoskeletal ROM normal neck. (-) JVD, (-) Stridor, (-) Nuchal rigidity Cardio: Rhythm regular, rate normal, Heart sounds normal; Intact distal pulses; Radial pulses are 2+ and symmetric. (-) Murmur Pulmonary/Chest wall: Effort normal. (-) Respiratory distress, (-) Wheezes, (-) Rales Abd: Soft, (-) tenderness, (-) Distension, (-) Guarding, (-) Rebound Musculoskeletal: (-) Edema Lymph: (-) Cervical adenopathy Neuro: Alert, PERRL, Oriented x3, Strength normal, Cranial nerves II-XII are grossly intact. SILT, Strength 5/5 BUE and BLE, (-) Dysmetria, (-) Nystagmus, ambulates w steady gait. Psych: Mood and affect Normal Triage Information Reviewed: Yes Vital Signs On Initial Exam: Initial Vitals Temp Pulse Resp BP Pulse Ox 97.6 F 66 16 122/87 100 09/01/19 18:46 09/01/19 18:46 09/01/19 18:46 09/01/19 18:46 09/01/19 18:46 Vital Signs Reviewed: Yes Procedures - Sedation Patient Received Moderate/Deep Sedation with Procedure: No Diagnostics - Vital Signs Vital Signs Temp Pulse Resp BP Pulse Ox 09/01/19 19:23 79 121/94 09/01/19 19:22 83 121/94 92 09/01/19 19:20 71 127/88 100 09/01/19 19:19 73 125/87 100 09/01/19 19:00 86 95 09/01/19 18:55 79 100 09/01/19 18:49 70 122/87 95 09/01/19 18:46 97.6 F 66 16 122/87 100 - Laboratory Lab Results: Lab Results 09/01/19 09/01/19 Range/Units 19:04 19:04 WBC 7.8 (3.5-10.8) 10^3/uL RBC 4.13 (3.70-4.87) 10^6 /uL Hgb 12.9 (12.0-16.0) g/dL Hct 37 (35-47) % MCV 90 (80-97) fL MCH 31 (27-31) pg MCHC 35 (31-36) g/dL RDW 14 (10-15) % Plt Count 266 (150-450) 10^3/uL MPV 8.3 (7.4-10.4) fL Neut % (Auto) 59.3 % Lymph % (Auto) 31.6 % Hartley % (Auto) 5.9 % Eos % (Auto) 2.6 % Baso % (Auto) 0.6 % Absolute Neuts (auto) 4.6 (1.5-7.7) 10^3/ul Absolute Lymphs (auto) 2.5 (1.0-4.8) 10^3/ul Absolute Monos (auto) 0.5 (0-0.8) 10^3/ul Absolute Eos (auto) 0.2 (0-0.6) 10^3/ul Absolute Basos (auto) 0.0 (0-0.2) 10^3/ul Absolute Nucleated RBC 0.0 10^3/ul Nucleated RBC % 0.0 Sodium 141 (135-145) mmol/L Potassium 3.7 (3.5-5.0) mmol/L Chloride 106 (101-111) mmol/L Carbon Dioxide 28 (22-32) mmol/L Anion Gap 7 (2-11) mmol/L BUN 15 (6-24) mg/dL Creatinine 0.88 (0.51-0.95) mg/dL Est GFR ( Amer) 91.9 (>60) Est GFR (Non-Af Amer) 76.0 (>60) BUN/Creatinine Ratio 17.0 (8-20) Glucose 88 (70-100) mg/dL Calcium 9.4 (8.6-10.3) mg/dL Magnesium 1.8 L (1.9-2.7) mg/dL Total Bilirubin 0.40 (0.2-1.0) mg/dL AST 16 (13-39) U/L ALT 16 (7-52) U/L Alkaline Phosphatase 98 (34-104) U/L Total Protein 7.2 (6.4-8.9) g/dL Albumin 4.3 (3.2-5.2) g/dL Globulin 2.9 (2-4) g/dL Albumin/Globulin Ratio 1.5 (1-3) Beta HCG, Quant < 0.60 mIU/mL Result Diagrams: 09/01/19 19:04 09/01/19 19:04 Lab Statement: Any lab studies that have been ordered have been reviewed, and results considered in the medical decision making process. Course/Dx Course Of Treatment: 29 y/o F p/w syncopal episode this AM. Syncope. DDx: Seizure: no witnessed seizure activity, incontinence or h/o seizures to suggest seizure today. Hypoxia and hypoglycemia less likely in this patient with normal sats and BG. Cardiac issue: electrical (dysarrhythmias, brugada, WPW, long QT). Less likely given no evidence of drop attack, no palpitations, no EKG findings to predispose to arrhythmias. No CP. Vessels: PE, dissection, AAA. Clinical picture inconsistent, no abd pain, no pulsatile mass, symmetric pulses , no risk factors of PE, PERC neg. Volume issue: dehydration from vomiting/ diarrhea/decreased PO, sepsis, GI bleed, ruptured ectopic or bleeding AAA. No signs of recent illness to suggest infection, no e/o anemia by history or PE, neg preg test neg so unlikely ectopic, orthostatics - normal. Neuro: No LOWE, no personal or family h/o cerebral aneurysm, nml neuro exam, so this is unlikely ICH or sentinel bleed. Recent normal MRI. Also: vasovagal, drugs/meds, autonomic insufficiency. Hx prior syncopal episodes w/o clear cause. Has had holter in past. Plan for labs, fluids, likely PCP f/u. [facility] Syncope - low risk - Diagnoses Provider Diagnoses: Syncope Discharge ED - Sign-Out/Discharge Documenting (check all that apply): Patient Departure - Discharge Plan Condition: Stable Disposition: HOME Patient Education Materials: Syncope (ED) Referrals: Segundo Johnson MD [Primary Care Provider] - Additional Instructions: You were seen in the emergency department for syncope. Please follow up with your doctor for further testing. Please follow up with your primary care doctor in next 2-3 days and return to emergency department for continued syncope, chest pain, worsening or concerning symptoms. It was a pleasure taking care of you today. - Billing Disposition and Condition Condition: STABLE Disposition: Home - Attestation Statements Document Initiated by Amna: Yes Documenting Scribe: Marleny Hughes Provider For Whom Amna is Documenting (Include Credential): Osbaldo Barone MD. Scribe Attestation: IMarleny, scribed for Osbaldo Barone MD. on 09/01/19 at 2009. Scribe Documentation Reviewed: Yes Provider Attestation: The documentation as recorded by the Marleny dee accurately reflects the service I personally performed and the decisions made by Osbaldo kern MD. Status of Scribe Document: Viewed
[2019-09-01] MEDS ORDERED: Magnesium Oxide TAB* 400 MG PO ONE (20:03)
[2019-09-01 20:17] VITALS: BP 115/96
== END 2019-09-01 20:15 | disposition home or self-care (01) ==
LOC: ED 18:40
DX: R55 Syncope and collapse (principal); K21.9 Gastro-esophageal reflux disease without esophagitis; F41.9 Anxiety disorder, unspecified; Z79.899 Other long term (current) drug therapy; Z88.5 Allergy status to narcotic agent
CPT/HCPCS: 36415; 80053; 83735; 84702; 85025; 96360; 99283